=== PATIENT | female | born 1985 | race Caucasian/White ===

== ENCOUNTER 2018-05-09 09:51 | Emergency (ER) | payer BC, OTHER ==
[~2018-05-09] VITALS: Ht 170.2 cm; Wt 83.9 kg
--- OUTSIDE RECORDS SUMMARY | 2018-05-09 09:57 | XMS REPORT ---
Author Author ANNIE PELAEZ Organization [facility] Address [address] [place] [address] Care Team Providers Care Tire Wrapper Name Role Phone BENIGNO ANNIE Unavailable PROBLEMS Type Condition ICD9-CM Code ZYD91-CT Code Onset Dates Condition Status SNOMED Code Problem Overweight (BMI 25.0-29.9) E66.3 Active 685369657 Problem Witnessed seizure-like activity R56.9 Active 568482894 Problem Subclinical hyperthyroidism E05.90 Active 379295892 ALLERGIES No Information ENCOUNTERS Encounter Location Date Diagnosis [facility] IN [facility] [address] [address] Oct, Acute nasopharyngitis J00 [facility] [address] [address] Oct, [facility] [address] [address] Oct, Subclinical hyperthyroidism E05.90 [facility] [address] [address] Oct, [facility] [address] [address] Oct, Witnessed seizure-like activity R56.9 and Overweight (BMI 25.0-29.9) E66.3 [facility] [address] [address] Aug, IMMUNIZATIONS No Known Immunizations SOCIAL HISTORY Never Assessed REASON FOR VISIT Requests return call PLAN OF CARE VITAL SIGNS MEDICATIONS No Known Medications RESULTS No Results PROCEDURES No Known procedures INSTRUCTIONS MEDICATIONS ADMINISTERED No Known Medications MEDICAL (GENERAL) HISTORY Type Description Date Medical History HPV Medical History gastroesophageal reflux disease (GERD) Surgical History cholecystectomy 2007 Surgical History EGD x2 2008 Hospitalization History Surgery(s)/Childbirth(s) only
--- OUTSIDE RECORDS SUMMARY | 2018-05-09 09:57 | XMS REPORT ---
Author Author ANAM CRUZ Organization [facility] Address [address] [place] [address] Care Team Providers Care Top Precipitator Operator Helper Name Role Phone ANAM CRUZ Unavailable PROBLEMS Type Condition ICD9-CM Code VFB12-UO Code Onset Dates Condition Status SNOMED Code Problem Overweight (BMI 25.0-29.9) E66.3 Active 408125523 Problem Witnessed seizure-like activity R56.9 Active 258698776 Problem Subclinical hyperthyroidism E05.90 Active 879654655 ALLERGIES Substance Reaction Event Type Date Status Penicillin G Sodium hives Drug Allergy Oct, Active ENCOUNTERS Encounter Location Date Diagnosis [facility] [address] [address] Oct, Acute nasopharyngitis J00 [place] [address] [address] Oct, [place] [address] [address] Oct, Subclinical hyperthyroidism E05.90 [place] [address] [address] Oct, [place] [address] [address] Oct, Witnessed seizure-like activity R56.9 and Overweight (BMI 25.0-29.9) E66.3 [place] [address] [address] Aug, IMMUNIZATIONS No Known Immunizations SOCIAL HISTORY Never Assessed REASON FOR VISIT flu symptoms Pt c/o cough, congestion, sore throat for 2 days DEVORAH Perry PLAN OF CARE Activity Details Follow Up prn Reason: VITAL SIGNS Height 67 in 2017-11-06 Weight 180.0 lbs 2017-11-06 Temperature 98.5 degrees Fahrenheit 2017-11-06 Heart Rate 80 bpm 2017-11-06 Respiratory Rate 20 2017-11-06 Oximetry 99 % 2017-11-06 BMI 28.19 kg/m2 2017-11-06 Blood pressure systolic 120 mmHg 2017-11-06 Blood pressure diastolic 68 mmHg 2017-11-06 MEDICATIONS Medication Instructions Dosage Frequency Start Date End Date Duration Status Claritin 10 MG Orally Once a day 1 tablet 24h Not-Taking Ibuprofen Active Tylenol Active Keppra 500 mg Orally Twice a day 1 tablet 12h 12 Oct, 2017 90 days Active Multivitamin Active RESULTS No Results PROCEDURES No Known procedures INSTRUCTIONS MEDICATIONS ADMINISTERED No Known Medications MEDICAL (GENERAL) HISTORY Type Description Date Medical History HPV Medical History gastroesophageal reflux disease (GERD) Surgical History cholecystectomy 2007 Surgical History EGD x2 2007 Hospitalization History Surgery(s)/Childbirth(s) only
--- OUTSIDE RECORDS SUMMARY | 2018-05-09 09:57 | XMS REPORT ---
Author Author BENIGNO ANNIE Organization [facility] Address [address] [place] [address] Care Team Providers Care Clinic Md Associate Name Role Phone PELAEZMAR RogersELE Unavailable PROBLEMS Type Condition ICD9-CM Code LGD46-GR Code Onset Dates Condition Status SNOMED Code Problem Overweight (BMI 25.0-29.9) E66.3 Active 125526316 Problem Witnessed seizure-like activity R56.9 Active 698572902 Problem Subclinical hyperthyroidism E05.90 Active 649137988 ALLERGIES Substance Reaction Event Type Date Status Penicillin G Sodium hives Drug Allergy Oct, Active ENCOUNTERS Encounter Location Date Diagnosis [facility] IN [facility] [address] [address] Oct, Acute nasopharyngitis J00 [facility] [address] [address] Oct, [facility] [address] [address] Oct, Subclinical hyperthyroidism E05.90 [facility] [address] [address] Oct, [facility] [address] [address] Oct, Witnessed seizure-like activity R56.9 and Overweight (BMI 25.0-29.9) E66.3 [facility] [address] [address] Aug, IMMUNIZATIONS No Known Immunizations SOCIAL HISTORY Never Assessed REASON FOR VISIT Seizure--tcuppettRN, Had a possible seizure last night that lasted approximately 30 seconds. Has never had a seizure before PLAN OF CARE Activity Details Follow Up 6 Weeks Reason:needs to est. care VITAL SIGNS Height 67 in 2017-10-23 Weight 184.8 lbs 2017-10-23 Temperature 98.1 degrees Fahrenheit 2017-10-23 Heart Rate 76 bpm 2017-10-23 Respiratory Rate 20 2017-10-23 BMI 28.94 kg/m2 2017-10-23 Blood pressure systolic 130 mmHg 2017-10-23 Blood pressure diastolic 72 mmHg 2017-10-23 MEDICATIONS Medication Instructions Dosage Frequency Start Date End Date Duration Status Keppra 500 mg Orally Twice a day 1 tablet 12h Oct, 90 days Active Tylenol Active Claritin 10 MG Orally Once a day 1 tablet 24h Active Multivitamin Active Ibuprofen Active RESULTS No Results PROCEDURES Procedure Date Ordered Result Body Site COMPLETE CBC W/AUTO DIFF WBC October 23, 2017 COMPREHEN METABOLIC PANEL October 23, 2017 LIPID PANEL October 23, 2017 ASSAY THYROID STIM HORMONE October 23, 2017 VENIPUNCT, ROUTINE* October 23, 2017 ASSAY OF MAGNESIUM October 23, 2017 INSTRUCTIONS MEDICATIONS ADMINISTERED No Known Medications MEDICAL (GENERAL) HISTORY Type Description Date Medical History HPV Medical History gastroesophageal reflux disease (GERD) Surgical History cholecystectomy 2007 Surgical History EGD x2 2007 Hospitalization History Surgery(s)/Childbirth(s) only
--- OUTSIDE RECORDS SUMMARY | 2018-05-09 09:57 | XMS REPORT ---
Author Author ANNIE PELAEZ Organization [facility] Address [address] [place] [address] Care Team Providers Care Telephone Plant Power Operator Name Role Phone BENIGNOMARANNIE Unavailable PROBLEMS Type Condition ICD9-CM Code XRN85-NF Code Onset Dates Condition Status SNOMED Code Problem Overweight (BMI 25.0-29.9) E66.3 Active 391422328 Problem Witnessed seizure-like activity R56.9 Active 450506589 Problem Subclinical hyperthyroidism E05.90 Active 334785486 ALLERGIES No Information ENCOUNTERS Encounter Location Date Diagnosis [facility] IN [facility] [address] [address] Oct, Acute nasopharyngitis J00 [facility] [address] [address] Oct, [facility] [address] [address] Oct, Subclinical hyperthyroidism E05.90 [facility] [address] [address] Oct, [facility] [address] [address] Oct, Witnessed seizure-like activity R56.9 and Overweight (BMI 25.0-29.9) E66.3 [facility] [address] [address] Aug, IMMUNIZATIONS No Known Immunizations SOCIAL HISTORY Never Assessed REASON FOR VISIT Referral PLAN OF CARE VITAL SIGNS MEDICATIONS No Known Medications RESULTS No Results PROCEDURES No Known procedures INSTRUCTIONS MEDICATIONS ADMINISTERED No Known Medications MEDICAL (GENERAL) HISTORY Type Description Date Medical History HPV Medical History gastroesophageal reflux disease (GERD) Surgical History cholecystectomy 2007 Surgical History EGD x2 2008 Hospitalization History Surgery(s)/Childbirth(s) only
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
--- OUTSIDE RECORDS SUMMARY | 2018-05-09 09:57 | XMS REPORT ---
Author Author BENIGNO ANNIE Organization [facility] Address [address] [place] [address] Care Team Providers Care Associate Research Scientist Name Role Phone PELAEZANNIE Rogers Unavailable PROBLEMS Type Condition ICD9-CM Code IYU93-XI Code Onset Dates Condition Status SNOMED Code Problem Overweight (BMI 25.0-29.9) E66.3 Active 774288800 Problem Witnessed seizure-like activity R56.9 Active 919566936 Problem Subclinical hyperthyroidism E05.90 Active 880281230 ALLERGIES Substance Reaction Event Type Date Status Penicillin G Sodium hives Drug Allergy Aug, Active ENCOUNTERS Encounter Location Date Diagnosis [facility] [address] [address] Oct, Acute nasopharyngitis J00 [facility] [address] [address] Oct, [facility] [address] [address] Oct, Subclinical hyperthyroidism E05.90 [facility] [address] [place] [id number] [place] [address] Oct, [facility] [address] [address] Oct, Witnessed seizure-like activity R56.9 and Overweight (BMI 25.0-29.9) E66.3 [facility] [address] [address] Aug, IMMUNIZATIONS No Known Immunizations SOCIAL HISTORY Never Assessed REASON FOR VISIT PMH obtained. Howard RAYA PLAN OF CARE VITAL SIGNS MEDICATIONS No Known Medications RESULTS No Results PROCEDURES No Known procedures INSTRUCTIONS MEDICATIONS ADMINISTERED No Known Medications MEDICAL (GENERAL) HISTORY Type Description Date Medical History HPV Medical History gastroesophageal reflux disease (GERD) Surgical History cholecystectomy 2008 Surgical History EGD x2 2008 Hospitalization History Surgery(s)/Childbirth(s) only
--- OUTSIDE RECORDS SUMMARY | 2018-05-09 09:57 | XMS REPORT ---
Author Author ANNIE PELAEZ Organization [facility] Address [address] [place] [address] Care Team Providers Care Wire Bender Name Role Phone BENIGNOMARANNIE Unavailable PROBLEMS Type Condition ICD9-CM Code RUQ39-FU Code Onset Dates Condition Status SNOMED Code Problem Overweight (BMI 25.0-29.9) E66.3 Active 139761948 Problem Witnessed seizure-like activity R56.9 Active 738073779 Problem Subclinical hyperthyroidism E05.90 Active 851369577 ALLERGIES No Information ENCOUNTERS Encounter Location Date Diagnosis [facility] IN [facility] [address] [address] Oct, Acute nasopharyngitis J00 [facility] [address] [address] Oct, [facility] [address] [address] Oct, Subclinical hyperthyroidism E05.90 [facility] [address] [address] Oct, [facility] [address] [address] Oct, Witnessed seizure-like activity R56.9 and Overweight (BMI 25.0-29.9) E66.3 [facility] [address] [address] Aug, IMMUNIZATIONS No Known Immunizations SOCIAL HISTORY Never Assessed REASON FOR VISIT Lab results PLAN OF CARE VITAL SIGNS MEDICATIONS No Known Medications RESULTS No Results PROCEDURES No Known procedures INSTRUCTIONS MEDICATIONS ADMINISTERED No Known Medications MEDICAL (GENERAL) HISTORY Type Description Date Medical History HPV Medical History gastroesophageal reflux disease (GERD) Surgical History cholecystectomy 2007 Surgical History EGD x2 2008 Hospitalization History Surgery(s)/Childbirth(s) only
[2018-05-09] MEDS ORDERED: KETOROLAC 30 MG/ML VIAL IM ONE (10:15)
--- NOTE | 2018-05-09 10:15 | ED Upper Extremity ---
General Chief Complaint: Upper Extremity Stated Complaint: R HAND INJ Nursing Triage Note: pt states last night, she was coming in her house from the rain when she slipped and fell into a door jam striking her hand Nursing Sepsis Screen: No Definite Risk Source: patient, spouse Exam Limitations: no limitations History of Present Illness Date Seen by Provider: May 09, 2018 Time Seen by Provider: 10:05 Initial Comments The patient presents to the ER by private conveyance with chief complaint that she was walking the dogs last night in the rain and when she came in she's fell on the linoleum and landed with her right hand stretched out in front of her fourth and fifth digits running into the doorjamb. She put some ice on it and took a Profen last night but this morning it was quite swollen, bruised and painful. She has no previous fractures to her hand. She is right-handed. No injuries elsewhere. She does not strike her head or get knocked out. No significant medical history. She denies , control or tubal ligation. Allergies and Home Medications Allergies Coded Allergies: No Known Drug Allergies (Unverified , 05/09/18) Patient Home Medication List Home Medication List Reviewed: Yes Review of Systems Constitutional: No chills, No diaphoresis EENTM: No hearing loss, No ear pain Respiratory: No cough, No short of breath Cardiovascular: No chest pain, No Hx of Intervention Gastrointestinal: No abdominal pain, No nausea Past Cclkzba-Oncaqf-Ehbaxe Hx Patient Social History Recent Foreign Travel: No Contact w/Someone Who Travel: No Recent Infectious Disease Expo: No Past Medical History : No Last Menstrual Period: Apr 25, 2018 Physical Exam Vital Signs Vital Signs - First Documented Capillary Refill : Less Than 3 Seconds Height, Weight, BMI Height: 5'7.00" Weight: 185lbs. oz. 83.761177fz; BMI Method:Stated General Appearance: WD/WN, no apparent distress HEENT: PERRL/EOMI, pharynx normal Cardiovascular: normal peripheral pulses, regular rate, rhythm Respiratory: no respiratory distress, no accessory muscle use Elbow/Forearm: normal inspection, non-tender, no evidence of injury, normal ROM , Right Wrist: Yes normal inspection, Yes non-tender, Yes no evidence of injury Hand: Right, ecchymosis (over the lateral fourth and fifth metacarpals there is a hematoma and tenderness with limited range of motion to this finger secondary to pain.), soft tissue tenderness, swelling Skin: ecchymosis (over fourth and fifth metacarpals), other (capillary refill less than 2 seconds all 5 digits right hand) Progress/Results/Core Measures Results/Orders My Orders Orders - MARCI LINARES Urine Bedside (05/09/18 10:11) Hand, Right, 3 Views (05/09/18 10:11) Ketorolac Injection (Toradol Injection) (05/09/18 10:15) Medications Given in ED Current Medications Medications Dose Ordered Sig/Dejan Route Start Time Stop Time Status Last Admin Dose Admin Ketorolac Tromethamine 30 mg ONCE ONCE IM 05/09/18 10:15 05/09/18 10:16 DC 05/09/18 10:59 30 MG Vital Signs/I&O 05/09/18 10:03 B/P (MAP) Progress Progress Note : Time: 10:14 Progress Note Bedside , Toradol and x-ray of hand. Encourage ice. Diagnostic Imaging Diagonstic Imaging: Xray Plain Films/CT/US/NM/MRI: hand (right) Comments [facility]IA [facility] [place], [place] NAME: STACI BERRIOS [facility] REC#: [id number] PT STATUS: REG ER : 1985 PHYSICIAN: MARCI LINARES MD ADMIT DATE: 05/09/18/ER Draft Date of Exam:05/09/18 HAND, RIGHT, 3 VIEWS INDICATION: Right hand injury with pain. AP, oblique and lateral views of the right hand are obtained. There is a mildly comminuted intra-articular fracture involving the proximal base of fifth metacarpal. No other fracture or malalignment is identified. There is no abnormal lytic or sclerotic focus. IMPRESSION: Mildly comminuted intra-articular fracture of the base of fifth metacarpal without significant displacement. Dictated on workstation # [id number] Dict: 05/09/18 1049 Trans: 05/09/18 1058 [facility] [id number] Interpreted by: GLORIA HSIEH MD Electronically signed by: Departure Impression Primary Impression: Fracture of fifth metacarpal bone of right hand Qualified Codes: S62.346A - Nondisplaced fracture of base of fifth metacarpal bone, right hand, initial encounter for closed fracture Disposition: 01 HOME, SELF-CARE Condition: Stable Departure-Patient Inst. Decision time for Depature: 11:26 Referrals: SARAH MONSON MD Patient Instructions: Hand Fracture (DC) Add. Discharge Instructions: Wear the hand splint for comfort keep the hand elevated above the level of your heart when possible and apply ice every 4 hours for 20 minutes for the first 3 days. You can also use heating pads as necessary for pain. Use ibuprofen 800 mg every 8 hours in addition to Tylenol 1000 mg every 8 hours as needed for pain. He still have breakthrough pain you can use the hydrocodone one tablet every 6 hours but will cause constipation, drowsiness and should not be mixed with alcohol, climbing up ladders or scaffolding or long road trips. Call [facility] at the number listed per Dr. Monson and request to be seen by the hand surgeon either this week or early next week. All discharge instructions reviewed with patient and/or family. Voiced understanding. Scripts Hydrocodone Bit/Acetaminophen (Hydrocodone/Acetaminophen 5/325mg Tablet) 1 Tab Tab 1 EACH PO Q4-6HR PRN for PAIN-MODERATE MDD 10 for 7 Days, #16 TAB 0 Refills Prov: MARCI LINARES 05/09/18 Work/School Note: Work Release Form Date Seen in the Emergency Department: May 09, 2018 Return to Work: May 10, 2018 Restrictions: Need Release from Doctor Other Restrictions Listed Below: No lifting more than 20 pounds with the right hand for 6 weeks. MARCI LINARES May 09, 2018 10:15
--- NOTE | 2018-05-09 10:58 | Diagnostic Imaging Report ---
INDICATION: Right hand injury with pain. AP, oblique and lateral views of the right hand are obtained. There is a mildly comminuted intra-articular fracture involving the proximal base of fifth metacarpal. No other fracture or malalignment is identified. There is no abnormal lytic or sclerotic focus. IMPRESSION: Mildly comminuted intra-articular fracture of the base of fifth metacarpal without significant displacement. Dictated by: Dictated on workstation # [id number]
[2018-05-09] MEDS ORDERED: ACHD5005 PO (11:28)
[2018-05-09 11:46] VITALS: BP 132/68
== END 2018-05-09 11:46 | disposition home or self-care (01) ==
LOC: ER 09:53
DX: S62.346A Nondisplaced fracture of base of fifth metacarpal bone, right hand, initial encounter for closed fracture (principal); W18.30XA Fall on same level, unspecified, initial encounter; W23.1XXA Caught, crushed, jammed, or pinched between stationary objects, initial encounter
CPT/HCPCS: 73130; 84703

== ENCOUNTER 2018-08-02 06:18 | Emergency (ER) | payer OTHER ==
[~2018-08-02] VITALS: Ht 170.2 cm; Wt 79.4 kg
[~2018-08-02 06:18] MED LIST: ACHD5005 PO
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
[2018-08-02 06:46] LABS: BASOPHILS % (AUTO) 0 % (0-10); EOSINOPHILS # (AUTO) 0.2 10^3/uL (0.0-0.3); EOSINOPHILS % (AUTO) 3 % (0-10); HEMATOCRIT 43 % (35-52); HEMOGLOBIN 15.3 G/DL (11.5-16.0); LYMPHOCYTES # (AUTO) 1.9 X 10^3 (1.0-4.0); LYMPHOCYTES % (AUTO) 30 % (12-44); MEAN CORPUSCULAR HEMOGLOBIN 31 PG (25-34); MEAN CORPUSCULAR HGB CONC 36 G/DL (32-36); MEAN CORPUSCULAR VOLUME 87 FL (80-99); MEAN PLATELET VOLUME 10.1 FL (7.4-10.4); MONOCYTES # (AUTO) 0.5 X 10^3 (0.0-1.0); MONOCYTES % (AUTO) 7 % (0-12); NEUTROPHILS # (AUTO) 3.9 X 10^3 (1.8-7.8); NEUTROPHILS % (AUTO) 60 % (42-75); PLATELET COUNT 268 10^3/uL (130-400); RED CELL DISTRIBUTION WIDTH 12.8 % (10.0-14.5); WHITE BLOOD COUNT 6.5 10^3/uL (4.3-11.0)
--- NOTE | 2018-08-02 07:00 | ED Neurological Problem ---
General Chief Complaint: Neurological Problems Stated Complaint: HAD SEIZURE 30 MINUTES AGO Nursing Triage Note: AMBULATORY TO ED WITH C/O BEING IN BATH TUB THIS AM AND HAVING A SEIZURE. STATES SHE DRAINED THE TUB WATER AFTER FEELING HER HEART RACING. THINKS IT WAS APPROX 25 MIN FROM TIME OF START UNTIL SHE WAS COHERENT TO GET HER S/O. WAS PREVIOUSLY DIAGNOSED WITH SEIZURE DISORDER AND ON KEPPRA UNTIL SEEN BY NEUROLOGIST WHO TOOK HER OFF KEPPRA AND THOUGHT IT WAS POSSIBLE SYNCOPAL EPISODES. PREVIOUS MRI AND EEG DONE. Nursing Sepsis Screen: No Definite Risk Source: patient Exam Limitations: no limitations History of Present Illness Date Seen by Provider: Aug 02, 2018 Time Seen by Provider: 06:31 Initial Comments Here with report of episode this morning while taking a bath. She is not sure if this was a seizure or syncopal episode. She states that she was in the bath and started feeling palpitations and weak. She drank the tub. She states that she then feels like she passed out. She was having this episode for about 20 or 25 minutes before she was able to get her friend. Was concerned about seizure as she has had an episode of this in the past. That was worked up by neurology including MRI and EEG. At that time they believe she may have been having syncopal episodes and not seizures. She is not sure if that is what she had today but admits that it may have been a syncopal episode. She is here because she was told by her primary and neurologist to be seen in the emergency department or by her provider soon after one of these events labs could be drawn. Denies injury or current illness. Timing/Duration: 1 hour Severity: mild, moderate Associated Symptoms: No fever/chills, No nausea/vomiting, No slurred speech, No trouble walking, No vision changes; weakness Allergies and Home Medications Allergies Coded Allergies: Penicillins (Verified Allergy, Unknown, 08/02/18) erythromycin base (Verified Allergy, Unknown, 08/02/18) Home Medications Hydrocodone Bit/Acetaminophen 1 Tab Tab, 1 EACH PO Q4-6HR PRN for PAIN-MODERATE Prescribed by: MARCI LINARES on 05/09/18 1128 Patient Home Medication List Home Medication List Reviewed: Yes Review of Systems Review of Systems Constitutional: see HPI; No chills, No fever Eyes: No Symptoms Reported Ears, Nose, Mouth, Throat: no symptoms reported Respiratory: no symptoms reported Cardiovascular: palpitations, syncope Gastrointestinal: No abdominal pain, No nausea, No vomiting Genitourinary: no symptoms reported Musculoskeletal: no symptoms reported Skin: no symptoms reported Psychiatric/Neurological: See HPI; Denies Headache, Denies Weakness Past Qxfwclg-Lebvtl-Exbjfr Hx Past Med/Social Hx: Reviewed Nursing Past Med/Soc Hx Patient Social History Alcohol Use: Occasionally Uses Recreational Drug Use: Yes Drug of Choice: MARIJUANA Smoking Status: Current Everyday Smoker Type Used: Cigarettes 2nd Hand Smoke Exposure: Yes Recent Foreign Travel: No Contact w/Someone Who Travel: No Recent Infectious Disease Expo: No Recent Hopitalizations: No Immunizations Up To Date Date of Influenza Vaccine: Jul 16, 2018 Seasonal Allergies Seasonal Allergies: No Past Medical History Surgeries: Yes (EGD X2) Gallbladder Respiratory: Yes Asthma Cardiac: No Neurological: Yes Seizure Disorder Sexually Transmitted Disease: No Genitourinary: No Gastrointestinal: No Musculoskeletal: No Endocrine: No HEENT: No Cancer: No Psychosocial: No Integumentary: No Family Medical History Reviewed Nursing Family Hx No Pertinent Family Hx Physical Exam Vital Signs Vital Signs - First Documented 08/02/18 06:25 Temp 96.5 Pulse 82 Resp 17 B/P (MAP) 144/95 (111) Capillary Refill : Less Than 3 Seconds Height, Weight, BMI Height: 5'7.00" Weight: 175lbs. oz. 79.455897ky; BMI Method:Stated General Appearance: WD/WN, no apparent distress HEENT: PERRL/EOMI, pharynx normal Neck: full range of motion, supple Respiratory: lungs clear, normal breath sounds Cardiovascular: regular rate, rhythm, no murmur Peripheral Pulses: 2+ Dorsalis Pedis (R), 2+ Left Dors-Pedis (L), 2+ Radial Pulses (R), 2+ Radial Pulses (L) Gastrointestinal: non tender, soft Back: normal inspection, no CVA tenderness, no vertebral tenderness Extremities: non-tender, normal inspection Neurologic/Psychiatric: no motor/sensory deficits, alert, normal mood/affect, oriented x 3 Crainal Nerves: normal hearing, normal speech, PERRL Coordination/Gait: normal gait Motor/Sensory: no motor deficit Skin: normal color, warm/dry Progress/Results/Core Measures Results/Orders Lab Results Laboratory Tests Test 08/02/18 06:38 Range/Units White Blood Count 6.5 4.3-11.0 10^3/uL Red Blood Count 4.90 4.35-5.85 10^6/uL Hemoglobin 15.3 11.5-16.0 G/DL Hematocrit 43 35-52 % Mean Corpuscular Volume 87 80-99 FL Mean Corpuscular Hemoglobin 31 25-34 PG Mean Corpuscular Hemoglobin Concent 36 32-36 G/DL Red Cell Distribution Width 12.8 10.0-14.5 % Platelet Count 268 130-400 10^3/uL Mean Platelet Volume 10.1 7.4-10.4 FL Neutrophils (%) (Auto) 60 42-75 % Lymphocytes (%) (Auto) 30 12-44 % Monocytes (%) (Auto) 7 0-12 % Eosinophils (%) (Auto) 3 0-10 % Basophils (%) (Auto) 0 0-10 % Neutrophils # (Auto) 3.9 1.8-7.8 X 10^3 Lymphocytes # (Auto) 1.9 1.0-4.0 X 10^3 Monocytes # (Auto) 0.5 0.0-1.0 X 10^3 Eosinophils # (Auto) 0.2 0.0-0.3 10^3/uL Basophils # (Auto) 0.0 0.0-0.1 10^3/uL Sodium Level 139 135-145 MMOL/L Potassium Level 3.4 L 3.6-5.0 MMOL/L Chloride Level 110 H 98-107 MMOL/L Carbon Dioxide Level 16 L 21-32 MMOL/L Anion Gap 13 5-14 MMOL/L Blood Urea Nitrogen 12 7-18 MG/DL Creatinine 0.80 0.60-1.30 MG/DL Estimat Glomerular Filtration Rate > 60 BUN/Creatinine Ratio 15 Glucose Level 104 70-105 MG/DL Calcium Level 9.8 8.5-10.1 MG/DL Corrected Calcium 8.5-10.1 MG/DL Magnesium Level 2.2 1.8-2.4 MG/DL Total Bilirubin 2.5 H 0.1-1.0 MG/DL Aspartate Amino Transf (AST/SGOT) 70 H 5-34 U/L Alanine Aminotransferase (ALT/SGPT) 80 H 0-55 U/L Alkaline Phosphatase 95 40-136 U/L Total Protein 7.6 6.4-8.2 GM/DL Albumin 4.8 H 3.2-4.5 GM/DL TSH [place] Testing 0.74 0.35-4.94 UIU/ML My Orders Orders - JOVITA GILBERT MD Cbc With Automated Diff (08/02/18 06:41) Comprehensive Metabolic Panel (08/02/18 06:41) Thyroid Analyzer (08/02/18 06:41) Magnesium (08/02/18 06:41) Vital Signs/I&O 08/02/18 06:25 Temp 96.5 Pulse 82 Resp 17 B/P (MAP) 144/95 (111) Blood Pressure Mean: 111 Progress Progress Note : Progress Note Seen and evaluated. Labs and TSH ordered. Monitor patient. 0730: Labs complete. Liver enzymes are noted to be slightly elevated with elevated total bili. Patient has had cholecystectomy previously. This will need to be rechecked. She does have appointment on 21 August. I will send a copy of the chart formerly [facility]'s and they can compare labs. I did express the importance of follow-up and repeat labs with the patient and she verbalizes understanding. Discharged home with return precautions. Patient verbalize understanding of instructions and agreement with plan. Departure Impression Primary Impression: Elevated liver enzymes Additional Impression: Syncope Qualified Codes: R55 - Syncope and collapse Disposition: 01 HOME, SELF-CARE Condition: Improved Departure-Patient Inst. Decision time for Depature: 07:33 Referrals: [facility]/ (PCP) Primary Care Physician JASON MCCORMICK APRN (Family) Primary Care Physician Patient Instructions: Liver Function Test, Syncope (Fainting) (DC) Add. Discharge Instructions: All discharge instructions reviewed with patient and/or family. Voiced understanding. Your liver enzymes were elevated. You need to discuss this with your doctor on your appointment on 21 August. Return for worse pain, fever, vomiting, weakness , breathing problems or other concerns as needed. Return for any seizure-like problems as well. Get some rest today and drink plenty of fluids. Avoid Tylenol/acetaminophen at this point due to liver enzyme elevation. Work/School Note: Work Release Form Date Seen in the Emergency Department: Aug 02, 2018 Return to Work: Aug 03, 2018 Restrictions: No Restrictions Copy Copies To 1: YUKI ENCARNACION TIMOTHY D MD Aug 02, 2018 07:00
[2018-08-02 07:04] LABS: ALANINE AMINOTRANSFERASE 80 U/L (0-55); ALBUMIN 4.8 GM/DL (3.2-4.5); ALKALINE PHOSPHATASE 95 U/L (40-136); BILIRUBIN,TOTAL 2.5 MG/DL (0.1-1.0); BUN/CREATININE RATIO 15; CALCIUM 9.8 MG/DL (8.5-10.1); CARBON DIOXIDE 16 MMOL/L (21-32); CHLORIDE 110 MMOL/L (98-107); GFR ESTIMATED > 60; GLUCOSE 104 MG/DL (70-105); MAGNESIUM 2.2 MG/DL (1.8-2.4); POTASSIUM 3.4 MMOL/L (3.6-5.0); SODIUM 139 MMOL/L (135-145); TOTAL PROTEIN 7.6 GM/DL (6.4-8.2)
[2018-08-02 07:24] LABS: TSH (THYROID ANALYZER) 0.74 UIU/ML (0.35-4.94)
[2018-08-02 07:40] VITALS: BP 126/92
== END 2018-08-02 07:40 | disposition home or self-care (01) ==
LOC: EDUNIT# 06:18 → ER 06:21
DX: R55 Syncope and collapse (principal); R94.5 Abnormal results of liver function studies; J45.909 Unspecified asthma, uncomplicated; G40.909 Epilepsy, unspecified, not intractable, without status epilepticus; F12.10 Cannabis abuse, uncomplicated; F17.210 Nicotine dependence, cigarettes, uncomplicated; Z88.0 Allergy status to penicillin; Z88.1 Allergy status to other antibiotic agents
CPT/HCPCS: 36415; 80053; 83735; 84443; 85025

== ENCOUNTER 2018-09-10 13:19 | Emergency (ER) | payer OTHER ==
[~2018-09-10] VITALS: Ht 170.2 cm; Wt 79.4 kg
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
[2018-09-10] MEDS ORDERED: KETOROLAC 60 MG/2 ML VIAL IM ONE (13:45)
[2018-09-10] MEDS ORDERED: ORPHENADRINE 60 MG/2 ML (NORFLEX) AMP IM ONE (13:45)
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
[2018-09-10] MEDS ORDERED: CYCL10TA9 PO (14:35)
[2018-09-10 14:43] VITALS: BP 109/69
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
== END 2018-09-10 14:43 | disposition home or self-care (01) ==
LOC: EDUNIT# 13:19 → ER 13:19
DX: S13.4XXA Sprain of ligaments of cervical spine, initial encounter (principal); J45.909 Unspecified asthma, uncomplicated; G40.909 Epilepsy, unspecified, not intractable, without status epilepticus; F12.10 Cannabis abuse, uncomplicated; Z77.22 Contact with and (suspected) exposure to environmental tobacco smoke (acute) (chronic); Z88.0 Allergy status to penicillin; Z88.1 Allergy status to other antibiotic agents; Z98.890 Other specified postprocedural states; V49.40XA Driver injured in collision with unspecified motor vehicles in traffic accident, initial encounter
CPT/HCPCS: 70450; 72125; 96372

== ENCOUNTER 2018-12-03 12:43 | Emergency (ER) | payer OTHER ==
[~2018-12-03] VITALS: Ht 170.2 cm; Wt 74.8 kg
[~2018-12-03 12:43] MED LIST changes: +CYCL10TA9 PO
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
[2018-12-03 13:05] LABS: BASOPHILS % (AUTO) 0 % (0-10); EOSINOPHILS # (AUTO) 0.1 10^3/uL (0.0-0.3); EOSINOPHILS % (AUTO) 2 % (0-10); HEMATOCRIT 40 % (35-52); HEMOGLOBIN 13.8 G/DL (11.5-16.0); LYMPHOCYTES % (AUTO) 35 % (12-44); MEAN CORPUSCULAR HEMOGLOBIN 31 PG (25-34); MEAN CORPUSCULAR HGB CONC 34 G/DL (32-36); MEAN CORPUSCULAR VOLUME 90 FL (80-99); MEAN PLATELET VOLUME 10.4 FL (7.4-10.4); MONOCYTES # (AUTO) 0.6 X 10^3 (0.0-1.0); MONOCYTES % (AUTO) 7 % (0-12); NEUTROPHILS # (AUTO) 4.8 X 10^3 (1.8-7.8); NEUTROPHILS % (AUTO) 56 % (42-75); PLATELET COUNT 220 10^3/uL (130-400); RED CELL DISTRIBUTION WIDTH 12.8 % (10.0-14.5); WHITE BLOOD COUNT 8.6 10^3/uL (4.3-11.0)
[2018-12-03 13:08] LABS: BILIRUBIN,URINE NEGATIVE (NEGATIVE); CLARITY,URINE SLIGHTLY CLOUDY; COLOR,URINE YELLOW; GLUCOSE, URINE (UA) NEGATIVE (NEGATIVE); KETONES,URINE NEGATIVE (NEGATIVE); LEUKOCYTE ESTERASE ,URINE 1+ (NEGATIVE); NITRITE,URINE NEGATIVE (NEGATIVE); PH,URINE 5 (5-9); PROTEIN,URINE NEGATIVE (NEGATIVE); UROBILINOGEN,URINE NORMAL (NORMAL)
[2018-12-03 13:23] LABS: ALANINE AMINOTRANSFERASE 26 U/L (0-55); ALBUMIN 4.5 GM/DL (3.2-4.5); ALKALINE PHOSPHATASE 58 U/L (40-136); AMYLASE 45 U/L (25-125); BILIRUBIN,TOTAL 1.2 MG/DL (0.1-1.0); BUN/CREATININE RATIO 14; CALCIUM 9.9 MG/DL (8.5-10.1); CARBON DIOXIDE 23 MMOL/L (21-32); CHLORIDE 108 MMOL/L (98-107); CREATININE SERUM 0.77 MG/DL (0.60-1.30); GFR ESTIMATED > 60; GLUCOSE 92 MG/DL (70-105); LIPASE 22 U/L (8-78); POTASSIUM 3.6 MMOL/L (3.6-5.0); SODIUM 141 MMOL/L (135-145); TOTAL PROTEIN 7.1 GM/DL (6.4-8.2)
[2018-12-03 13:45] LABS: BACTERIA,URINE NEGATIVE /HPF; WBC,URINE 0-2 /HPF
[2018-12-03] MEDS ORDERED: fentaNYL INJECTION 100 MCG/2 ML AMP IVP ONE (14:00)
--- NOTE | 2018-12-03 14:48 | ED GU-Female ---
General Chief Complaint: Abdominal/GI Problems Stated Complaint: LEFT SIDE ABD PAIN Nursing Triage Note: pt presents with left-sided abdominal pain that shoots through to her back since this morning. pt states pain is dull/throbbing in nature and constant. pt denies n/v/d/c. Nursing Sepsis Screen: No Definite Risk Source: patient Exam Limitations: no limitations History of Present Illness Date Seen by Provider: Dec 03, 2018 Time Seen by Provider: 12:47 Allergies and Home Medications Allergies Coded Allergies: Penicillins (Verified Allergy, Unknown, 08/02/18) erythromycin base (Verified Allergy, Unknown, 08/02/18) Home Medications Cyclobenzaprine HCl 10 Mg Tablet, 10 MG PO Q8H Prescribed by: ANTONIO GÓMEZ on 09/10/18 1435 Hydrocodone Bit/Acetaminophen 1 Tab Tab, 1 EACH PO Q4-6HR PRN for PAIN-MODERATE Prescribed by: MARCI LINARES on 05/09/18 1128 Past Gqvljdl-Keiutc-Ecppiq Hx Patient Social History Alcohol Use: Denies Use Recreational Drug Use: No Type Used: Cigarettes 2nd Hand Smoke Exposure: Yes Recent Foreign Travel: No Contact w/Someone Who Travel: No Recent Infectious Disease Expo: No Recent Hopitalizations: No Immunizations Up To Date Date of Influenza Vaccine: Jul 16, 2018 Seasonal Allergies Seasonal Allergies: No Past Medical History Surgeries: Yes (EGD X2) Gallbladder Respiratory: Yes Asthma Cardiac: No Neurological: Yes Seizure Disorder Sexually Transmitted Disease: No Genitourinary: No Gastrointestinal: No Musculoskeletal: No Endocrine: No HEENT: No Cancer: No Psychosocial: No Integumentary: No Family Medical History No Pertinent Family Hx Physical Exam Vital Signs Vital Signs - First Documented 12/03/18 12:48 Temp 97.5 Pulse 72 Resp 18 B/P (MAP) 144/87 (106) Pulse Ox 99 O2 Delivery Room Air Capillary Refill : Less Than 3 Seconds Height, Weight, BMI Height: 5'7.00" Weight: 165lbs. oz. 74.397349es; BMI Method:Stated Progress/Results/Core Measures Suspected Sepsis Recent Fever Within 48 Hours: No Infection Criteria Present: Suspected New Infection New/Unexplained Altered Menta: No Sepsis Screen: No Definite Risk SIRS Temperature:97.5 Pulse: 72 Respiratory Rate: 18 Laboratory Tests 12/03/18 12:55: White Blood Count 8.6 Blood Pressure 144 /87 Mean: 106 Laboratory Tests 12/03/18 12:55: Creatinine 0.77, Platelet Count 220, Total Bilirubin 1.2H Results/Orders Lab Results Laboratory Tests Test 12/03/18 12:55 12/03/18 12:59 Range/Units White Blood Count 8.6 4.3-11.0 10^3/uL Red Blood Count 4.49 4.35-5.85 10^6/uL Hemoglobin 13.8 11.5-16.0 G/DL Hematocrit 40 35-52 % Mean Corpuscular Volume 90 80-99 FL Mean Corpuscular Hemoglobin 31 25-34 PG Mean Corpuscular Hemoglobin Concent 34 32-36 G/DL Red Cell Distribution Width 12.8 10.0-14.5 % Platelet Count 220 130-400 10^3/uL Mean Platelet Volume 10.4 7.4-10.4 FL Neutrophils (%) (Auto) 56 42-75 % Lymphocytes (%) (Auto) 35 12-44 % Monocytes (%) (Auto) 7 0-12 % Eosinophils (%) (Auto) 2 0-10 % Basophils (%) (Auto) 0 0-10 % Neutrophils # (Auto) 4.8 1.8-7.8 X 10^3 Lymphocytes # (Auto) 3.0 1.0-4.0 X 10^3 Monocytes # (Auto) 0.6 0.0-1.0 X 10^3 Eosinophils # (Auto) 0.1 0.0-0.3 10^3/uL Basophils # (Auto) 0.0 0.0-0.1 10^3/uL Sodium Level 141 135-145 MMOL/L Potassium Level 3.6 3.6-5.0 MMOL/L Chloride Level 108 H 98-107 MMOL/L Carbon Dioxide Level 23 21-32 MMOL/L Anion Gap 10 5-14 MMOL/L Blood Urea Nitrogen 11 7-18 MG/DL Creatinine 0.77 0.60-1.30 MG/DL Estimat Glomerular Filtration Rate > 60 BUN/Creatinine Ratio 14 Glucose Level 92 70-105 MG/DL Calcium Level 9.9 8.5-10.1 MG/DL Corrected Calcium 9.5 8.5-10.1 MG/DL Total Bilirubin 1.2 H 0.1-1.0 MG/DL Aspartate Amino Transf (AST/SGOT) 16 5-34 U/L Alanine Aminotransferase (ALT/SGPT) 26 0-55 U/L Alkaline Phosphatase 58 40-136 U/L Total Protein 7.1 6.4-8.2 GM/DL Albumin 4.5 3.2-4.5 GM/DL Amylase Level 45 25-125 U/L Lipase 22 8-78 U/L Serum Test, Qualitative NEGATIVE NEGATIVE Urine Color YELLOW Urine Clarity SLIGHTLY CLOUDY Urine pH 5 5-9 Urine Specific [place] 1.025 H 1.016-1.022 Urine Protein NEGATIVE NEGATIVE Urine Glucose (UA) NEGATIVE NEGATIVE Urine Ketones NEGATIVE NEGATIVE Urine Nitrite NEGATIVE NEGATIVE Urine Bilirubin NEGATIVE NEGATIVE Urine Urobilinogen NORMAL NORMAL MG/DL Urine Leukocyte Esterase 1+ H NEGATIVE Urine RBC (Auto) 1+ H NEGATIVE Urine RBC NONE /HPF Urine WBC 0-2 /HPF Urine Squamous Epithelial Cells 5-10 /HPF Urine Crystals NONE /LPF Urine Bacteria NEGATIVE /HPF Urine Casts NONE /LPF Urine Mucus NEGATIVE /LPF Urine Culture Indicated NO My Orders Orders - ANTONIO GÓMEZ Comprehensive Metabolic Panel (12/03/18 12:47) Lipase (12/03/18 12:47) Amylase (12/03/18 12:47) Ua Culture If Indicated (12/03/18 12:47) Hcg,Qualitative Serum (12/03/18 12:47) Ed Iv/Invasive Line Start (12/03/18 12:47) Cbc With Automated Diff (12/03/18 12:47) Fentanyl Injection (Sublimaze Injection (12/03/18 14:00) Us Non Ob Pelvis Comp/Transvag (12/03/18 13:26) Medications Given in ED Current Medications Medications Dose Ordered Sig/Dejan Route Start Time Stop Time Status Last Admin Dose Admin Fentanyl Citrate 50 mcg ONCE ONCE IVP 12/03/18 14:00 12/03/18 14:01 DC 12/03/18 14:01 50 MCG Vital Signs/I&O 12/03/18 12:48 Temp 97.5 Pulse 72 Resp 18 B/P (MAP) 144/87 (106) Pulse Ox 99 O2 Delivery Room Air Capillary Refill : Less Than 3 Seconds Blood Pressure Mean: 106 Departure Impression Primary Impression: Left lower quadrant pain Disposition: 01 HOME, SELF-CARE Condition: Stable/Unchanged Departure-Patient Inst. Decision time for Depature: 15:13 Referrals: [facility] (PCP) Primary Care Physician JASON MCCORMICK APRN (Family) Primary Care Physician Patient Instructions: Acute Abdomen (Belly Pain), Adult (DC) Add. Discharge Instructions: Keep your appointment with Soheila Hayward as scheduled tomorrow. Return back to the emergency room for worsening symptoms or concerns as needed. Drink plenty of fluids to stay hydrated. You may use Tylenol and ibuprofen as directed by the bottle for pain relief. All discharge instructions reviewed with patient and /or family. Voiced understanding. ANTONIO GÓMEZ Dec 03, 2018 14:48
--- NOTE | 2018-12-03 14:49 | Diagnostic Imaging Report ---
PROCEDURE: US Non-ob pelvis comp/trans. TECHNIQUE: Multiple realtime grayscale images were obtained of the pelvis in various projections endovaginally. Transabdominal imaging was also performed. INDICATION: Left side abdominal pain. The uterus measures 7.2 x 5.4 x 3.5 cm. The endometrium is 9 mm in thickness. No myometrial mass is detected. The right ovary measures 1.8 x 1.5 x 1.4 cm and the left ovary measures 2.4 x 2.5 x 1.2 cm. The ovaries contain small follicles. There is blood flow to both ovaries. No adnexal mass or free fluid is seen. IMPRESSION: Unremarkable pelvic ultrasound. Dictated by: Dictated on workstation # [id number]
[2018-12-03 15:37] VITALS: BP 128/87
== END 2018-12-03 15:37 | disposition home or self-care (01) ==
LOC: EDUNIT# 12:43 → ER 12:44
DX: R10.32 Left lower quadrant pain (principal); J45.909 Unspecified asthma, uncomplicated; G40.909 Epilepsy, unspecified, not intractable, without status epilepticus; Z88.0 Allergy status to penicillin; Z91.041 Radiographic dye allergy status; Z77.22 Contact with and (suspected) exposure to environmental tobacco smoke (acute) (chronic)
CPT/HCPCS: 36415; 76830; 76856; 80053; 81000; 82150; 83690; 84703; 85025

== ENCOUNTER 2019-02-01 10:52 | Emergency (ER) | payer OTHER ==
[~2019-02-01] VITALS: Ht 170.2 cm; Wt 74.8 kg
[2019-02-01] MEDS ORDERED: ASPIRIN 81 MG CHEW (CHILDREN'S ASA) PO ONE (11:15)
--- NOTE | 2019-02-01 11:15 | ED Chest Pain ---
General Chief Complaint: Chest Pain Stated Complaint: CHEST PAIN, ARM AND LEG NUMBNESS Nursing Triage Note: PT WAS SEEN BY CARDIOLOGY YESTERDAY FOR ECHO AND STRESS YESTERDAY. PT STATES SHE STARTED HAVING CHEST PAIN 25 MINUTES PRIOR TO ARRIVAL. PT STATES SHE WAS SWEATY AND BLURRY VISION. PT STATES NOTHING ABOUT THIS EVENT TODAY WAS DIFFERENT THAN PRIOR EPISODES. PT DENIES N/V/D/FEVER. PT DENIES CURRENT CHEST PAIN. PT STATES NUMBNESS AND TINGLING IN LEGS. PT SAID SHE HAS HAD EPISODES IN THE PAST CONCERN OF SEIZURE. Nursing Sepsis Screen: No Definite Risk History of Present Illness Date Seen by Provider: Feb 01, 2019 Time Seen by Provider: 11:00 Initial Comments 33-year-old female presents for chest pain began approximately 25 minutes prior to arrival. She has these symptoms intermittently and is having a cardiac work up by Dr. Cox, yesterday she completed a stress test and echo. Timing/Duration: 1/2 hour Severity/Quality: mild Location: substernal Radiation: no radiation Prior CP/Workup: non-cardiac ASA po LADLER: No NTG SL LADLER: No Associated Symptoms: denies symptoms; No abdominal pain, No back pain, No diaphoresis, No dizziness, No heartburn, No nausea/vomiting, No shortness of breath, No weakness Allergies and Home Medications Allergies Coded Allergies: Penicillins (Verified Allergy, Unknown, 08/02/18) erythromycin base (Verified Allergy, Unknown, 08/02/18) Home Medications Cyclobenzaprine HCl 10 Mg Tablet, 10 MG PO Q8H Prescribed by: ANTONIO GÓMEZ on 09/10/18 1435 Hydrocodone Bit/Acetaminophen 1 Tab Tab, 1 EACH PO Q4-6HR PRN for PAIN-MODERATE Prescribed by: MARCI LINARES on 05/09/18 1128 Patient Home Medication List Home Medication List Reviewed: Yes Review of Systems Review of Systems Constitutional: no symptoms reported, see HPI Cardiovascular: See HPI, Chest Pain All Other Systems Reviewed Negative Unless Noted: Yes Past Stnyqki-Lmbeut-Mfrqjk Hx Patient Social History Alcohol Use: Denies Use Recreational Drug Use: Yes (yesterday. ) Drug of Choice: MARIJUANA Smoking Status: Current Everyday Smoker Type Used: Cigarettes 2nd Hand Smoke Exposure: Yes Recent Foreign Travel: No Contact w/Someone Who Travel: No Recent Infectious Disease Expo: No Recent Hopitalizations: No Physical Abuse: No Sexual Abuse: No Mistreated: No Fear: No Immunizations Up To Date Date of Influenza Vaccine: Jul 16, 2018 Seasonal Allergies Seasonal Allergies: No Past Medical History Surgeries: Yes (EGD X2) Gallbladder Respiratory: Yes Asthma Cardiac: No Neurological: Yes Seizure Disorder Sexually Transmitted Disease: No Genitourinary: No Gastrointestinal: No Musculoskeletal: No Endocrine: No HEENT: No Cancer: No Psychosocial: No Integumentary: No Family Medical History No Pertinent Family Hx Physical Exam Vital Signs Vital Signs - First Documented 02/01/19 11:01 Temp 97.6 Pulse 78 Resp 18 B/P (MAP) 118/84 (95) Pulse Ox 98 O2 Delivery Room Air Capillary Refill : Less Than 3 Seconds Height, Weight, BMI Height: 5'7.00" Weight: 165lbs. oz. 74.588508io; BMI Method:Stated General Appearance: No Apparent Distress, WD/WN HEENT: PERRL/EOMI, TMs Normal, Normal ENT Inspection, Pharynx Normal Neck: Full Range of Motion, Normal Inspection, Non Tender, Supple Respiratory: Chest Non Tender, Lungs Clear, Normal Breath Sounds Cardiovascular: Regular Rate, Rhythm, No Edema, No Murmur, Normal Peripheral Pulses Gastrointestinal: Normal Bowel Sounds, Non Tender, Soft Neurologic/Psychiatric: Alert, Oriented x3, No Motor/Sensory Deficits, Normal Mood/Affect Skin: Normal Color, Warm/Dry Lymphatic: No Adenopathy Progress/Results/Core Measures Results/Orders Lab Results Laboratory Tests Test 02/01/19 11:10 Range/Units White Blood Count 7.0 4.3-11.0 10^3/uL Red Blood Count 4.57 4.35-5.85 10^6/uL Hemoglobin 14.1 11.5-16.0 G/DL Hematocrit 40 35-52 % Mean Corpuscular Volume 87 80-99 FL Mean Corpuscular Hemoglobin 31 25-34 PG Mean Corpuscular Hemoglobin Concent 35 32-36 G/DL Red Cell Distribution Width 12.2 10.0-14.5 % Platelet Count 219 130-400 10^3/uL Mean Platelet Volume 10.5 H 7.4-10.4 FL Neutrophils (%) (Auto) 54 42-75 % Lymphocytes (%) (Auto) 36 12-44 % Monocytes (%) (Auto) 8 0-12 % Eosinophils (%) (Auto) 2 0-10 % Basophils (%) (Auto) 0 0-10 % Neutrophils # (Auto) 3.8 1.8-7.8 X 10^3 Lymphocytes # (Auto) 2.5 1.0-4.0 X 10^3 Monocytes # (Auto) 0.6 0.0-1.0 X 10^3 Eosinophils # (Auto) 0.1 0.0-0.3 10^3/uL Basophils # (Auto) 0.0 0.0-0.1 10^3/uL Prothrombin Time 13.6 12.2-14.7 SEC INR Comment 1.0 0.8-1.4 Activated Partial Thromboplast Time 30 24-35 SEC Sodium Level 137 135-145 MMOL/L Potassium Level 3.1 L 3.6-5.0 MMOL/L Chloride Level 109 H 98-107 MMOL/L Carbon Dioxide Level 16 L 21-32 MMOL/L Anion Gap 12 5-14 MMOL/L Blood Urea Nitrogen 17 7-18 MG/DL Creatinine 0.92 0.60-1.30 MG/DL Estimat Glomerular Filtration Rate > 60 BUN/Creatinine Ratio 18 Glucose Level 126 H 70-105 MG/DL Calcium Level 9.6 8.5-10.1 MG/DL Corrected Calcium 9.3 8.5-10.1 MG/DL Magnesium Level 2.1 1.8-2.4 MG/DL Total Bilirubin 1.4 H 0.1-1.0 MG/DL Aspartate Amino Transf (AST/SGOT) 17 5-34 U/L Alanine Aminotransferase (ALT/SGPT) 22 0-55 U/L Alkaline Phosphatase 56 40-136 U/L Myoglobin 83.8 10.0-92.0 NG/ML Troponin I < 0.028 <0.028 NG/ML Total Protein 7.1 6.4-8.2 GM/DL Albumin 4.4 3.2-4.5 GM/DL Free Thyroxine 0.99 0.70-1.48 NG/DL TSH [place] Testing 0.30 L 0.35-4.94 UIU/ML My Orders Orders - LISSETTE DENNIS Cbc With Automated Diff (02/01/19 11:10) Magnesium (02/01/19 11:10) Chest 1 View, Ap/Pa Only (02/01/19 11:10) Cardiac Profile 1 (02/01/19 11:10) Comprehensive Metabolic Panel (02/01/19 11:10) Myoglobin Serum (02/01/19 11:10) Protime With Inr (02/01/19 11:10) Partial Thromboplastin Time (02/01/19 11:10) Monitor-Rhythm Ecg Trace Only (02/01/19 11:10) Ed Iv/Invasive Line Start (02/01/19 11:10) Aspirin Chewable Tablet (Baby Aspirin Ch (02/01/19 11:15) Thyroid Analyzer (02/01/19 11:34) Free T4 (Free Thyroxine) (02/01/19 11:10) Medications Given in ED Current Medications Medications Dose Ordered Sig/Dejan Route Start Time Stop Time Status Last Admin Dose Admin Aspirin 324 mg ONCE ONCE PO 02/01/19 11:15 02/01/19 11:16 DC 02/01/19 11:24 324 MG Vital Signs/I&O 02/01/19 02/01/19 02/01/19 11:01 11:01 13:31 Temp 97.6 97.6 Pulse 78 78 Resp 18 18 B/P (MAP) 118/84 (95) 118/84 (95) Pulse Ox 98 98 O2 Delivery Room Air Room Air Room Air Blood Pressure Mean: 95 Progress Progress Note : Time: 11:00 Progress Note Patient seen and evaluated, will start chest pain workup and proceed from there. Aspirin 324 mg orally. 1145 troponin negative, awaiting chest x-ray. Patient does report a history of thyroid dysfunction in the past however no she never required treatment will obtain a TSH and T4. [address] Cox by phone, the patient is scheduled for a tilt test next Monday, he'll proceed that no further treatment at this time. 1300 spoke to patient about her results of her TSH and T4. She'll follow up with his primary care provider. She is to take keep a follow-up appointment with Dr. Cxo. Discharge instructions and return precautions reviewed with her. Initial ECG Impression Date: Feb 01, 2019 Initial ECG Impression Time: 11:00 Initial ECG Rate: 79 Initial ECG Rhythm: Normal Sinus Initial ECG Intervals: Normal Initial ECG Intervals NM 148, QRSD 90, QT 372, QTC 427. Tuttle P 57, QRS 62, T 45. Initial ECG Impression: Normal Initial ECG Comparisson: Unchanged Diagnostic Imaging Diagonstic Imaging: Xray Plain Films/CT/US/NM/MRI: chest Comments NAME: STACI BERRIOS [facility] REC#: [id number] PHYSICIAN: LISSETTE DENNIS CC: LISSETTE DENNIS; RUTH FRANKS MD Page 1 of 1 RADIOLOGY REPORT [facility] [place] [place] CC: LISSETTE DENNIS; RUTH FRANKS MD Page 1 of 1 RADIOLOGY REPORT NAME: STACI BERRIOS [facility] REC#: [id number] PT STATUS: DEP ER : 1985 PHYSICIAN: LISSETTE DENNIS ADMIT DATE: 02/01/19/ER Signed Date of Exam: 02/01/19 CHEST 1 VIEW, AP/PA ONLY CHEST 1 VIEW, AP/PA ONLY Indication: Chest pain Comparison: None available. Findings: No focal airspace disease in the visualized lungs. Please note that the posterior lower lobes are poorly evaluated by portable radiography. No pleural effusion or pneumothorax. Normal cardiomediastinal silhouette. Impression: No acute cardiopulmonary process by portable radiography. Dictated by: Dictated on workstation # [id number] Dict: 02/01/19 1138 Trans: 02/01/19 1139 Interpreted by: RUTH FRANKS MD Electronically signed by: RUTH FRANKS MD 02/01/19 1139 Reviewed: Reviewed by Az Departure Impression Primary Impression: Chest pain, non-cardiac Additional Impression: Thyroid condition Disposition: 01 HOME, SELF-CARE Condition: Improved Departure-Patient Inst. Decision time for Depature: 12:15 Referrals: [facility] (PCP) Primary Care Physician EYAD ISLAS APRN (Family) Primary Care Physician Patient Instructions: Chest Pain That Is Not Caused by the Heart (DC), Hyperthyroidism (Overactive Thyroid) (DC) Add. Discharge Instructions: Keep your scheduled follow-up with Dr. Cox. Take aspirin 81 mg 1 tablet daily. Keep a journal of the symptoms are having and precluding events. Schedule follow-up regarding her evaluation at [facility]. Return to emergency department for chest pain, shortness of breath, or other urgent health care needs. All discharge instructions reviewed with patient and/or family. Voiced understanding. Copy Copies To 1: MIMI COX MD FACP FACC CCDS Copies To 2: YUKI ENCARNACION AMY ARNP Feb 01, 2019 11:15
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
[2019-02-01 11:17] LABS: BASOPHILS % (AUTO) 0 % (0-10); EOSINOPHILS # (AUTO) 0.1 10^3/uL (0.0-0.3); EOSINOPHILS % (AUTO) 2 % (0-10); HEMATOCRIT 40 % (35-52); HEMOGLOBIN 14.1 G/DL (11.5-16.0); LYMPHOCYTES # (AUTO) 2.5 X 10^3 (1.0-4.0); LYMPHOCYTES % (AUTO) 36 % (12-44); MEAN CORPUSCULAR HEMOGLOBIN 31 PG (25-34); MEAN CORPUSCULAR HGB CONC 35 G/DL (32-36); MEAN CORPUSCULAR VOLUME 87 FL (80-99); MEAN PLATELET VOLUME 10.5 FL (7.4-10.4); MONOCYTES # (AUTO) 0.6 X 10^3 (0.0-1.0); MONOCYTES % (AUTO) 8 % (0-12); NEUTROPHILS # (AUTO) 3.8 X 10^3 (1.8-7.8); NEUTROPHILS % (AUTO) 54 % (42-75); PLATELET COUNT 219 10^3/uL (130-400); RED CELL DISTRIBUTION WIDTH 12.2 % (10.0-14.5)
[2019-02-01 11:29] LABS: PROTHROMBIN TIME PATIENT 13.6 SEC (12.2-14.7)
[2019-02-01 11:35] LABS: ALANINE AMINOTRANSFERASE 22 U/L (0-55); ALBUMIN 4.4 GM/DL (3.2-4.5); ALKALINE PHOSPHATASE 56 U/L (40-136); BILIRUBIN,TOTAL 1.4 MG/DL (0.1-1.0); BUN/CREATININE RATIO 18; CALCIUM 9.6 MG/DL (8.5-10.1); CARBON DIOXIDE 16 MMOL/L (21-32); CHLORIDE 109 MMOL/L (98-107); CREATININE SERUM 0.92 MG/DL (0.60-1.30); GFR ESTIMATED > 60; GLUCOSE 126 MG/DL (70-105); MAGNESIUM 2.1 MG/DL (1.8-2.4); POTASSIUM 3.1 MMOL/L (3.6-5.0); SODIUM 137 MMOL/L (135-145); TOTAL PROTEIN 7.1 GM/DL (6.4-8.2)
[2019-02-01 12:14] LABS: TSH (THYROID ANALYZER) 0.3 UIU/ML (0.35-4.94)
[2019-02-01 12:50] LABS: FREE T4 (FREE THYROXINE) 0.99 NG/DL (0.70-1.48)
[2019-02-01 13:31] VITALS: BP 118/84
--- NOTE | 2019-02-01 14:05 | Diagnostic Imaging Report ---
CHEST 1 VIEW, AP/PA ONLY Indication: Chest pain Comparison: None available. Findings: No focal airspace disease in the visualized lungs. Please note that the posterior lower lobes are poorly evaluated by portable radiography. No pleural effusion or pneumothorax. Normal cardiomediastinal silhouette. Impression: No acute cardiopulmonary process by portable radiography. Dictated by: Dictated on workstation # [id number]
== END 2019-02-01 13:31 | disposition home or self-care (01) ==
LOC: EDUNIT# 10:52 → ER 10:53
DX: R07.2 Precordial pain (principal); E07.9 Disorder of thyroid, unspecified; J45.909 Unspecified asthma, uncomplicated; G40.909 Epilepsy, unspecified, not intractable, without status epilepticus; F12.10 Cannabis abuse, uncomplicated; F17.210 Nicotine dependence, cigarettes, uncomplicated; Z88.0 Allergy status to penicillin; Z91.041 Radiographic dye allergy status
CPT/HCPCS: 36415; 71045; 80053; 83735; 83874; 84439; 84443; 84484; 85025; 85610; 85730; 93005; 93041

== ENCOUNTER 2019-07-12 16:56 | Emergency (ER) | payer OTHER ==
[~2019-07-12] VITALS: Ht 170 cm; Wt 82.3 kg
[2019-07-12] MEDS ORDERED: ASPIRIN 81 MG CHEW (CHILDREN'S ASA) PO ONE (17:15)
[2019-07-12] MEDS ORDERED: KETOROLAC 30 MG/ML VIAL IVP ONE (17:15)
[2019-07-12 17:16] LABS: BASOPHILS % (AUTO) 0 % (0-10); EOSINOPHILS % (AUTO) 0 % (0-10); HEMATOCRIT 45 % (35-52); HEMOGLOBIN 16.2 G/DL (11.5-16.0); LYMPHOCYTES # (AUTO) 1.3 X 10^3 (1.0-4.0); LYMPHOCYTES % (AUTO) 27 % (12-44); MEAN CORPUSCULAR HEMOGLOBIN 31 PG (25-34); MEAN CORPUSCULAR HGB CONC 36 G/DL (32-36); MEAN CORPUSCULAR VOLUME 87 FL (80-99); MEAN PLATELET VOLUME 10.3 FL (7.4-10.4); MONOCYTES # (AUTO) 0.9 X 10^3 (0.0-1.0); MONOCYTES % (AUTO) 19 % (0-12); NEUTROPHILS # (AUTO) 2.6 X 10^3 (1.8-7.8); NEUTROPHILS % (AUTO) 53 % (42-75); PLATELET COUNT 202 10^3/uL (130-400); RED CELL DISTRIBUTION WIDTH 12.2 % (10.0-14.5); WHITE BLOOD COUNT 4.9 10^3/uL (4.3-11.0)
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
[2019-07-12 17:36] LABS: ALANINE AMINOTRANSFERASE 39 U/L (0-55); ALBUMIN 4.5 GM/DL (3.2-4.5); ALKALINE PHOSPHATASE 72 U/L (40-136); BILIRUBIN,TOTAL 0.5 MG/DL (0.1-1.0); BUN/CREATININE RATIO 12; CALCIUM 9.7 MG/DL (8.5-10.1); CARBON DIOXIDE 17 MMOL/L (21-32); CHLORIDE 105 MMOL/L (98-107); CREATININE SERUM 0.82 MG/DL (0.60-1.30); GFR ESTIMATED > 60; GLUCOSE 99 MG/DL (70-105); LIPASE 31 U/L (8-78); POTASSIUM 3.4 MMOL/L (3.6-5.0); SODIUM 136 MMOL/L (135-145); TOTAL PROTEIN 7.7 GM/DL (6.4-8.2)
[2019-07-12 17:46] LABS: LYMPHOCYTES % (MANUAL) 30 %; NEUTROPHILS % (MANUAL) 50 %
--- NOTE | 2019-07-12 17:46 | Diagnostic Imaging Report ---
Indication: Chest pain and shortness of breath PA and lateral chest Heart size and pulmonary vascularity are normal. Lungs are clear. There are no effusions or pneumothoraces. IMPRESSION: Negative chest Dictated by: Dictated on workstation # [id number]
[2019-07-12 17:47] LABS: EOSINOPHILS % (MANUAL) 2 %; MONOCYTES % (MANUAL) 18 %; RBC MORPH N
[2019-07-12] MEDS ORDERED: IOHEXOL 350 MG/ML 100 ML (OMNIPAQUE 350) VIAL IV ONE (18:15)
[2019-07-12] MEDS ORDERED: NS 100 ML (IVPB) BAG IV ONE (18:15)
[2019-07-12] MEDS ORDERED: HOLD METFORMIN - RECEIVED CONTRAST 20 ML VIAL IV SCH (18:15)
--- NOTE | 2019-07-12 18:29 | Diagnostic Imaging Report ---
PROCEDURE: CT angiography of the chest with contrast. TECHNIQUE: Multiple contiguous axial images were obtained through the chest after uneventful bolus administration of intravenous contrast. 3D reconstructed CTA MIP acquisitions were also performed. Auto Exposure Controls were utilized during the CT exam to meet ALARA standards for radiation dose reduction. INDICATION: Jaw pain, left shoulder pain and chest pain with shortness of air. FINDINGS: There are no intraluminal pulmonary arterial filling defects. There are no findings of pulmonary arterial embolus. The thoracic aorta patent and nonaneurysmal. There is no pleural or pericardial effusion. There is no pneumothorax. No findings of focal pneumonia or aspiration. No mass or adenopathy. There is no acute soft tissue or osseous chest wall lesion. The visualized upper abdomen is nonacute. IMPRESSION: Normal CTA chest. Dictated by: Dictated on workstation # [id number]
[2019-07-12 18:52] VITALS: BP 132/81
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
== END 2019-07-12 18:54 | disposition home or self-care (01) ==
LOC: EDUNIT# 16:56 → ER 16:57
DX: M79.10 Myalgia, unspecified site (principal); R07.9 Chest pain, unspecified; J45.909 Unspecified asthma, uncomplicated; G40.909 Epilepsy, unspecified, not intractable, without status epilepticus; Z88.0 Allergy status to penicillin; Z88.1 Allergy status to other antibiotic agents; Z77.22 Contact with and (suspected) exposure to environmental tobacco smoke (acute) (chronic)
CPT/HCPCS: 36415; 71046; 71275; 80053; 83690; 83880; 84443; 84484; 84703; 85007; 85027; 85379; 87804; 93005; 96374

== ENCOUNTER 2019-10-14 16:36 | Emergency (ER) | payer OTHER ==
[~2019-10-14] VITALS: Ht 170 cm; Wt 84.0 kg
--- NOTE | 2019-10-14 17:30 | ED Cardiac General ---
History of Present Illness General Chief Complaint: Cardiac/General Problems Stated Complaint: SEIZURE,CHEST PAIN,ARMS NUMB AND TINGLING Nursing Triage Note: had a seizure approx 45 minutes [employer], now has CP and deshawn shoulder pain, L arm pain, and numbness to deshawn hands Source: patient Exam Limitations: no limitations History of Present Illness Date Seen by Provider: Oct 14, 2019 Time Seen by Provider: 17:26 Initial Comments To ER with reports of seizure-like activity. She's had this a couple of times, this lasts anywhere from a few seconds to 30 seconds. Typically this happens when she is on her menstrual period, today is the first time it happened when she is not on her menstrual period. This affects both hands shaking, she loses consciousness. She did not bite her tongue or lose control of bowel or bladder. At this point she has some tingling in both hands which is typical after these attacks will usually resolve over the course of the next couple hours she states. She has seen primary care, Dr. Cox from cardiology and neurology from with video electroencephalogram. She states that epilepsy has been ruled out, the only thing she had done his a tilt table test. Her older sister and father have similar symptoms, they have vasovagal syncope. Timing/Duration: 1/2 hour Severity: mild, moderate Location: central Activities at Onset: none NTG SL [employer] RE[employer]: No ASA po [employer] REP: No Associated Systoms: Weakness Allergies and Home Medications Allergies Coded Allergies: Penicillins (Verified Allergy, Unknown, 08/02/18) erythromycin base (Verified Allergy, Unknown, 08/02/18) Home Medications Cyclobenzaprine HCl 10 Mg Tablet, 10 MG PO Q8H Prescribed by: ANTONIO GÓMEZ on 09/10/18 1435 Hydrocodone Bit/Acetaminophen 1 Tab Tab, 1 EACH PO Q4-6HR PRN for PAIN-MODERATE Prescribed by: MARCI LINARES on 05/09/18 1128 Patient Home Medication List Home Medication List Reviewed: Yes Review of Systems Review of Systems Constitutional: see HPI EENTM: No Symptoms Reported Respiratory: No Symptoms Reported Cardiovascular: No Symptoms Reported Gastrointestinal: See HPI Genitourinary: No Symptoms Reported Musculoskeletal: no symptoms reported Skin: no symptoms reported Psychiatric/Neurological: No Symptoms Reported Endocrine: No Symptoms Reported Hematologic/Lymphatic: No Symptoms Reported Past Tokhhsi-Ipqejz-Brmrfa Hx Patient Social History Alcohol Use: Occasionally Uses Recreational Drug Use: Yes Drug of Choice: MARIJUANA Type Used: Cigarettes 2nd Hand Smoke Exposure: Yes Recent Foreign Travel: No Contact w/Someone Who Travel: No Recent Infectious Disease Expo: No Recent Hopitalizations: No Immunizations Up To Date Tetanus Booster (TDap): Unknown PED Vaccines UTD: Yes Date of Influenza Vaccine: Jul 16, 2018 Seasonal Allergies Seasonal Allergies: No Past Medical History Surgeries: Yes (EGD X2) Gallbladder Respiratory: Yes Asthma Cardiac: No Neurological: Yes Seizure Disorder Sexually Transmitted Disease: No Genitourinary: No Gastrointestinal: No Musculoskeletal: No Endocrine: No HEENT: No Cancer: No Psychosocial: No Integumentary: No Family Medical History No Pertinent Family Hx Physical Exam Vital Signs Vital Signs - First Documented 10/14/19 17:06 Pulse 57 Resp 16 B/P (MAP) 150/90 (110) Capillary Refill : Less Than 3 Seconds Height, Weight, BMI Height: 5'7.00" Weight: 165lbs. oz. 74.780764jt; 29.00 BMI Method:Stated General Appearance: No Apparent Distress, WD/WN HEENT: PERRL/EOMI, TMs Normal Neck: Full Range of Motion, Normal Inspection Respiratory: No Accessory Muscle Use, No Respiratory Distress Cardiovascular: Regular Rate, Rhythm, Normal Peripheral Pulses Gastrointestinal: Non Tender, Soft Extremity: Normal Capillary Refill, Normal Inspection Neurologic/Psychiatric: Alert, Oriented x3 Skin: Normal Color, Warm/Dry Progress/Results/Core Measures Results/Orders Lab Results Laboratory Tests Test 10/14/19 17:46 10/14/19 18:33 Range/Units White Blood Count 12.7 H 4.3-11.0 10^3/uL Red Blood Count 4.55 4.35-5.85 10^6/uL Hemoglobin 13.9 11.5-16.0 G/DL Hematocrit 40 35-52 % Mean Corpuscular Volume 88 80-99 FL Mean Corpuscular Hemoglobin 31 25-34 PG Mean Corpuscular Hemoglobin Concent 35 32-36 G/DL Red Cell Distribution Width 12.9 10.0-14.5 % Platelet Count 219 130-400 10^3/uL Mean Platelet Volume 10.0 7.4-10.4 FL Neutrophils (%) (Auto) 74 42-75 % Lymphocytes (%) (Auto) 18 12-44 % Monocytes (%) (Auto) 6 0-12 % Eosinophils (%) (Auto) 1 0-10 % Basophils (%) (Auto) 0 0-10 % Neutrophils # (Auto) 9.5 H 1.8-7.8 X 10^3 Lymphocytes # (Auto) 2.3 1.0-4.0 X 10^3 Monocytes # (Auto) 0.8 0.0-1.0 X 10^3 Eosinophils # (Auto) 0.2 0.0-0.3 10^3/uL Basophils # (Auto) 0.0 0.0-0.1 10^3/uL D-Dimer <= 0.27 0.00-0.49 UG/ML Sodium Level 137 135-145 MMOL/L Potassium Level 3.1 L 3.6-5.0 MMOL/L Chloride Level 108 H 98-107 MMOL/L Carbon Dioxide Level 22 21-32 MMOL/L Anion Gap 7 5-14 MMOL/L Blood Urea Nitrogen 15 7-18 MG/DL Creatinine 0.80 0.60-1.30 MG/DL Estimat Glomerular Filtration Rate > 60 BUN/Creatinine Ratio 19 Glucose Level 96 70-105 MG/DL Calcium Level 9.0 8.5-10.1 MG/DL Corrected Calcium 8.8 8.5-10.1 MG/DL Total Bilirubin 0.8 0.1-1.0 MG/DL Aspartate Amino Transf (AST/SGOT) 79 H 5-34 U/L Alanine Aminotransferase (ALT/SGPT) 55 0-55 U/L Alkaline Phosphatase 64 40-136 U/L Troponin I < 0.028 <0.028 NG/ML Total Protein 6.7 6.4-8.2 GM/DL Albumin 4.3 3.2-4.5 GM/DL Thyroid Stimulating Hormone (TSH) 0.63 0.35-4.94 UIU/ML Free Thyroxine 0.99 0.70-1.48 NG/DL Serum Test, Qualitative NEGATIVE NEGATIVE Urine Color YELLOW Urine Clarity CLEAR Urine pH 6.5 5-9 Urine Specific [place] <=1.005 1.016-1.022 Urine Protein NEGATIVE NEGATIVE Urine Glucose (UA) NEGATIVE NEGATIVE Urine Ketones NEGATIVE NEGATIVE Urine Nitrite NEGATIVE NEGATIVE Urine Bilirubin NEGATIVE NEGATIVE Urine Urobilinogen 0.2 < = 1.0 MG/DL Urine Leukocyte Esterase TRACE H NEGATIVE Urine RBC (Auto) TRACE-I NEGATIVE Urine RBC RARE /HPF Urine WBC RARE /HPF Urine Squamous Epithelial Cells RARE /HPF Urine Crystals NONE /LPF Urine Bacteria TRACE /HPF Urine Casts NONE /LPF Urine Mucus NEGATIVE /LPF Urine Culture Indicated NO My Orders Orders - RADHA GATES APRN Troponin I (10/14/19 17:25) Fibrin Degradation Products (10/14/19 17:25) Hcg,Qualitative Serum (10/14/19 17:25) Cbc With Automated Diff (10/14/19 17:25) Comprehensive Metabolic Panel (10/14/19 17:25) Thyroid Stimulating Hormone (10/14/19 17:25) Free T4 (Free Thyroxine) (10/14/19 17:25) Ekg Tracing (10/14/19 17:25) Ua Culture If Indicated (10/14/19 17:41) Chest 1 View, Ap/Pa Only (10/14/19 17:53) Potassium Chloride (Tablet) (Klor Con Ta (10/14/19 18:45) Vital Signs/I&O 10/14/19 17:06 Pulse 57 Resp 16 B/P (MAP) 150/90 (110) Blood Pressure Mean: 110 Departure Communication (Admissions) Differential includes vasovagal syncope versus psychogenic nonepileptic attacks. Impression Primary Impression: Seizure-like activity Disposition: 01 HOME, SELF-CARE Condition: Stable Departure-Patient Inst. Decision time for Depature: 19:04 [place] [facility] [place] Primary Care Physician EYAD ISLAS APRN (Family) Primary Care Physician Patient Instructions: Syncope (Fainting) (DC) Add. Discharge Instructions: 1. Call Dr. Hernandez for follow-up 2. All discharge instructions reviewed with patient and/or family. Voiced understanding. Copy Copies To 1: MIMI COX MD FACP FAC CCDS; EVERTON HERNANDEZ MD, PETER J APRN Oct 14, 2019 17:30
[2019-10-14 17:54] LABS: BASOPHILS % (AUTO) 0 % (0-10); EOSINOPHILS # (AUTO) 0.2 10^3/uL (0.0-0.3); EOSINOPHILS % (AUTO) 1 % (0-10); HEMATOCRIT 40 % (35-52); HEMOGLOBIN 13.9 G/DL (11.5-16.0); LYMPHOCYTES # (AUTO) 2.3 X 10^3 (1.0-4.0); LYMPHOCYTES % (AUTO) 18 % (12-44); MEAN CORPUSCULAR HEMOGLOBIN 31 PG (25-34); MEAN CORPUSCULAR HGB CONC 35 G/DL (32-36); MEAN CORPUSCULAR VOLUME 88 FL (80-99); MONOCYTES # (AUTO) 0.8 X 10^3 (0.0-1.0); MONOCYTES % (AUTO) 6 % (0-12); NEUTROPHILS # (AUTO) 9.5 X 10^3 (1.8-7.8); NEUTROPHILS % (AUTO) 74 % (42-75); PLATELET COUNT 219 10^3/uL (130-400); RED CELL DISTRIBUTION WIDTH 12.9 % (10.0-14.5); WHITE BLOOD COUNT 12.7 10^3/uL (4.3-11.0)
[2019-10-14 18:16] LABS: ALANINE AMINOTRANSFERASE 55 U/L (0-55); ALBUMIN 4.3 GM/DL (3.2-4.5); ALKALINE PHOSPHATASE 64 U/L (40-136); BILIRUBIN,TOTAL 0.8 MG/DL (0.1-1.0); BUN/CREATININE RATIO 19; CARBON DIOXIDE 22 MMOL/L (21-32); CHLORIDE 108 MMOL/L (98-107); GFR ESTIMATED > 60; GLUCOSE 96 MG/DL (70-105); POTASSIUM 3.1 MMOL/L (3.6-5.0); SODIUM 137 MMOL/L (135-145); TOTAL PROTEIN 6.7 GM/DL (6.4-8.2)
--- NOTE | 2019-10-14 18:25 | Diagnostic Imaging Report ---
Indication: Seizure and chest pain Single view of the chest is obtained with comparison made study of 07/12/2019. FINDINGS: Heart size and pulmonary vascularity are within normal limits, and the lungs are clear, bilaterally. IMPRESSION: Unremarkable chest. Dictated by: Dictated on workstation # [id number]
[2019-10-14 18:38] LABS: BILIRUBIN,URINE NEGATIVE (NEGATIVE); CLARITY,URINE CLEAR; COLOR,URINE YELLOW; GLUCOSE, URINE (UA) NEGATIVE (NEGATIVE); KETONES,URINE NEGATIVE (NEGATIVE); LEUKOCYTE ESTERASE ,URINE TRACE (NEGATIVE); NITRITE,URINE NEGATIVE (NEGATIVE); PH,URINE 6.5 (5-9); PROTEIN,URINE NEGATIVE (NEGATIVE)
[2019-10-14 18:38] LABS: FREE T4 (FREE THYROXINE) 0.99 NG/DL (0.70-1.48)
[2019-10-14] MEDS ORDERED: KCL 10 MEQ TAB (MICRO K) PO ONE (18:45)
[2019-10-14 18:55] LABS: BACTERIA,URINE TRACE /HPF; RBC,URINE RARE /HPF; SQUAMOUS EPITHELIAL CELL,UR RARE /HPF; WBC,URINE RARE /HPF
[2019-10-14 19:20] VITALS: BP 126/80
== END 2019-10-14 19:20 | disposition home or self-care (01) ==
LOC: EDUNIT# 16:36 → ER 16:37
DX: R25.8 Other abnormal involuntary movements (principal); Z88.0 Allergy status to penicillin; Z88.1 Allergy status to other antibiotic agents; Z77.22 Contact with and (suspected) exposure to environmental tobacco smoke (acute) (chronic)
CPT/HCPCS: 36415; 71045; 80053; 81000; 84439; 84443; 84484; 84703; 85025; 85379; 93005

== ENCOUNTER 2020-02-02 19:43 | Emergency (ER) | payer OTHER ==
[~2020-02-02] VITALS: Ht 167 cm; Wt 84.0 kg
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
[2020-02-02] MEDS ORDERED: RX-TRIMETH/SULFA. 160-800 MG (BACTRIM DS) TAB PPK#2 PO STA (20:10)
[2020-02-02] MEDS ORDERED: CLINDAMYCIN 600 MG/4ML (CLEOCIN) VIAL IM ONE (20:15)
--- NOTE | 2020-02-02 20:17 | ED General ---
General Chief Complaint: General Problems/Pain Stated Complaint: R FOOT INFECTION/SORE THROAT Source of Information: Patient History of Present Illness Date Seen by Provider: Feb 02, 2020 Time Seen by Provider: 20:00 Initial Comments PT ARRIVES VIA POV FROM HOME C/O SORE THROAT FOR A COUPLE OF DAYS--THINKS SHE HAS "STREP" --STATES SHE GETS IT ABOUT ONCE A YEAR NO FEVER NO URI SYMPTOMS NO COUGH ALSO STATES TODAY SHE HAS NOTICED A SORE ON THE SIDE OF HER RIGHT 5TH TOE, AND HAS A STREAK GOING UP HER RIGHT FOOT NO KNOWN INJURY STATES IT WAS NOT PAINFUL YESTERDAY DOES STATE SHE HAS BAD ATHLETE'S FOOT AND HAS SCABBED AREAS ON HER FEET FROM THAT NO MOTOR/SENSORY DEFICITS NO HISTORY OF MRSA/SKIN INFECTIONS PT DENIES ANY KNOWN SICK CONTACTS OR KNOWN EXPOSURE TO COVID-19 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 IS NOT ILL PT IS UP TO DATE ON TETANUS VACCINATION PCP: [facility] [place] Allergies and Home Medications Allergies Coded Allergies: Penicillins (Verified Allergy, Unknown, 08/02/18) erythromycin base (Verified Allergy, Unknown, 08/02/18) Home Medications Cefdinir 300 Mg Capsule, 300 MG PO BID Prescribed by: VIVI HELTON on 02/02/202054 Cyclobenzaprine HCl 10 Mg Tablet, 10 MG PO Q8H Prescribed by: ANTONIO GÓMEZ on 09/10/18 1435 Hydrocodone Bit/Acetaminophen 1 Tab Tab, 1 EACH PO Q4-6HR PRN for PAIN-MODERATE Prescribed by: MARCI LINARES on 05/09/18 1128 Ketoconazole 200 Mg Tablet, 200 MG PO DAILY Prescribed by: VIVI HELTON on 02/02/202018 Sulfamethoxazole/Trimethoprim 1 Each Tablet, 1 EACH PO BID Prescribed by: VIVI HELTON on 02/02/202018 Terbinafine HCl 15 Gm Cream..g., 15 GM TP BID Prescribed by: VIVI HELTON on 02/02/202018 Patient Home Medication List Home Medication List Reviewed: Yes Review of Systems Review of Systems Constitutional: no symptoms reported; No chills, No diaphoresis, No dizziness, No fever EENTM: see HPI, throat pain; No ear pain, No nose congestion, No throat swelling Respiratory: no symptoms reported; No cough, No short of breath Cardiovascular: no symptoms reported Gastrointestinal: no symptoms reported Genitourinary: no symptoms reported Musculoskeletal: see HPI Skin: see HPI Psychiatric/Neurological: No Symptoms Reported Hematologic/Lymphatic: No Symptoms Reported Immunological/Allergic: no symptoms reported Past Pocbyrk-Gsiasl-Fdgctw Hx Past Med/Social Hx: Reviewed and Corrections made Patient Social History Alcohol Use: Denies Use Recreational Drug Use: Yes (THC) Drug of Choice: MARIJUANA Smoking Status: Current Everyday Smoker Type Used: Cigarettes 2nd Hand Smoke Exposure: Yes Recent Foreign Travel: No Contact w/Someone Who Travel: No Recent Hopitalizations: No Immunizations Up To Date Tetanus Booster (TDap): Unknown PED Vaccines UTD: Yes Date of Influenza Vaccine: Jul 16, 2018 Seasonal Allergies Seasonal Allergies: No Past Medical History Surgeries: Yes (EGD X2) Gallbladder Respiratory: Yes Asthma Cardiac: No Neurological: Yes Seizure Disorder : No Reproductive Disorders: No Sexually Transmitted Disease: No Genitourinary: No Gastrointestinal: Yes (S/P CHOLECYSTECTOMY; EGD X2 ) Gall Bladder Disease Musculoskeletal: No Endocrine: No HEENT: No Cancer: No Psychosocial: No Integumentary: No Family Medical History No Pertinent Family Hx Physical Exam Vital Signs Vital Signs - First Documented 02/02/20 19:52 Temp 36.9 Pulse 103 Resp 18 B/P (MAP) 125/83 (97) Pulse Ox 96 Capillary Refill : Height, Weight, BMI Height: 5'7.00" Weight: 165lbs. oz. 74.807506um; 29.00 BMI Method:Stated General Appearance: No Apparent Distress, WD/WN HEENT: PERRL/EOMI, TMs Normal, Other (TONSILS AND POSTERIOR PHARYNX INFLAMED. NO EXUDATES. NO SIGNIFICANT TONSILLAR SWELLING OR EVIDENCE OF ABSCESS. VOICE NORMAL .NO UVULAR SWELLING. ) Neck: Full Range of Motion, Normal Inspection, Non Tender, Supple; No Lymphadenopathy (L), No Lymphadenopathy (R) Respiratory: Normal Breath Sounds, No Accessory Muscle Use, No Respiratory Distress Cardiovascular: Regular Rate, Rhythm, No Murmur Gastrointestinal: No Organomegaly, Non Tender, Soft Extremity: Normal Capillary Refill, Normal Range of Motion, No Pedal Edema, Other (EVIDENCE OF TINEA PEDIS TO BOTH FEET--MOSTLY AROUND/BETWEEN TOES--SCALY, PEELING SKIN WITH AREAS OF SCABBING AND FISSURING. HAS LARGER SCABBED WOUND TO LATERAL ASPECT OF RIGHT 5TH TOE WITH SURROUNDING ERYTHEMA, SLIGHT SUB Q PURULENCE AND STREAK EXTENDING TO ANTERIOR ASPECT OF ANKLE. NO EVIDENCE OF DEEP ABSCESS. NO DRAINAGE. 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 ) Progress/Results/Core Measures Suspected Sepsis SIRS Temperature: Pulse: Respiratory Rate: Blood Pressure / Mean: Results/Orders Lab Results Laboratory Tests Test 02/02/20 20:00 Range/Units Group A Streptococcus Screen POSITIVE H NEGATIVE My Orders Orders - VIVI HELTON DO Rapid Strep A Screen (02/02/20 20:02) Foot, Right, 3 View (02/02/20 20:02) Clindamycin Injection (Cleocin Injection (02/02/20 20:15) Rx-Trimeth/Sulfameth Ds Tab (Rx-Bactrim/ (02/02/20 20:10) Clindamycin 600 Mg/50 Ml Ivpb (Cleocin P (02/02/20 21:24) Clindamycin Injection (Cleocin Injection (02/02/20 21:26) Clindamycin Injection (Cleocin Injection (02/02/20 21:30) Medications Given in ED Current Medications Medications Dose Ordered Sig/Dejan Route Start Time Stop Time Status Last Admin Dose Admin Clindamycin Phosphate 600 mg ONCE ONCE IM 02/02/20 20:15 02/02/20 20:16 DC 02/02/20 21:33 600 MG Vital Signs/I&O 02/02/20 19:52 Temp 36.9 Pulse 103 Resp 18 B/P (MAP) 125/83 (97) Pulse Ox 96 Capillary Refill : Diagnostic Imaging Comments XRAYS RIGHT FOOT--NO ACUTE PROCESS, PER RADIOLOGIST REPORT AT 2056 Reviewed: Reviewed by Me Departure Impression Primary Impression: CELLULITIS WITH LYMPHANGITIS RIGHT FOOT Additional Impressions: Tinea pedis Strep pharyngitis Disposition: 01 HOME, SELF-CARE Condition: Stable Departure-Patient Inst. Referrals: [facility] (PCP) Primary Care Physician EYAD ISLAS APRN (Family) Primary Care Physician Patient Instructions: Athlete's Foot (DC), Cellulitis (Skin Infection), Adult (DC), MRSA (DC), Strep Throat (DC) Add. Discharge Instructions: SOAK FOOT IN WARM EPSOM SALTS 2-3 TIMES A DAY, DRY FEET WELL TYLENOL AND MOTRIN NEEDED FOR PAIN FOLLOW UP WITH [facility] IN 2 DAYS FOR FURTHER CARE All discharge instructions reviewed with patient and/or family. Voiced understanding. Scripts Cefdinir (Cefdinir) 300 Mg Capsule 300 MG PO BID, #20 CAP Prov: VIVI HELTON DO 02/02/20 Terbinafine HCl (Terbinafine) 15 Gm Cream..g. 15 GM TP BID for 30 Days, #1 TUBE Prov: VIVI HELTON DO 02/02/20 Ketoconazole (Ketoconazole) 200 Mg Tablet 200 MG PO DAILY, #30 TAB Prov: VIVI HELTON DO 02/02/20 Sulfamethoxazole/Trimethoprim (Bactrim Ds Tablet) 1 Each Tablet 1 EACH PO BID, #20 TAB Prov: VIVI HELTON DO 02/02/20 VIVI HELTON DO Feb 02, 2020 20:17
[2020-02-02] MEDS ORDERED: KETO200T12 PO (20:19)
[2020-02-02] MEDS ORDERED: TERB15CR6 TP (20:19)
[2020-02-02] MEDS ORDERED: SULF1TAB35 PO (20:19)
[2020-02-02] MEDS ORDERED: CEFD300C3 PO (20:55)
--- NOTE | 2020-02-02 20:55 | Diagnostic Imaging Report ---
INDICATION: Red streaking across the dorsum of the right foot and lower extremity. No known injuries. EXAMINATION: Right lower extremity, 02/02/2020. FINDINGS: Three views of the right foot. There is no evidence for an acute fracture or dislocation. The joint spaces are well maintained. There is no significant soft tissue swelling. IMPRESSION: No acute process. Dictated by: Dictated on workstation # [id number]
[2020-02-02 21:20] VITALS: BP 121/80
[2020-02-02] MEDS ORDERED: CLINDAMYCIN 600 MG/50 ML IVPB 0 ML IV ONE (21:24)
[2020-02-02] MEDS ORDERED: CLINDAMYCIN 300 MG/2ML (CLEOCIN) VIAL ONE (21:26)
[2020-02-02] MEDS ORDERED: CLINDAMYCIN 300 MG/2ML (CLEOCIN) VIAL IM ONE (21:30)
== END 2020-02-02 21:44 | disposition home or self-care (01) ==
LOC: EDUNIT# 19:43 → ER 19:44
DX: L03.115 Cellulitis of right lower limb (principal); B35.3 Tinea pedis; J02.0 Streptococcal pharyngitis; F17.210 Nicotine dependence, cigarettes, uncomplicated; Z88.0 Allergy status to penicillin; Z88.1 Allergy status to other antibiotic agents
CPT/HCPCS: 73630; 87430

== ENCOUNTER → 2020-05-15 | Outpatient (CLI) | payer OTHER ==
[~2020-05-15] MED LIST changes: +CEFD300C3 PO; +KETO200T12 PO; +RT-ALBUTEROL SULF 2.5 MG/3 ML PRE-MIX VIAL INH ONE; +SULF1TAB35 PO; +TERB15CR6 TP
== END ==
LOC: RT 15:30
PROVIDERS: ATTEND Nurse Practitioner Family
DX: R06.02 Shortness of breath (principal); F17.200 Nicotine dependence, unspecified, uncomplicated
CPT/HCPCS: 94060; 94726; 94729

== ENCOUNTER 2021-10-08 07:07 | Emergency (ER) | payer SELFPAY ==
[~2021-10-08] VITALS: Ht 170 cm; Wt 113.0 kg
[~2021-10-08 07:07] MED LIST changes: +CYCL10TA25 PO; -CYCL10TA9 PO; -RT-ALBUTEROL SULF 2.5 MG/3 ML PRE-MIX VIAL INH ONE; -SULF1TAB35 PO; +SULF1TAB38 PO
--- NOTE | 2021-10-08 07:19 | ED Chest Pain ---
General Chief Complaint: Chest Pain Stated Complaint: CHEST PAIN / NAUSEA Source: patient Exam Limitations: no limitations History of Present Illness Date Seen by Provider: Oct 08, 2021 Time Seen by Provider: 07:14 Initial Comments Patient is a 35-year-old female who presents to the emergency department with a chief complaint of midsternal chest discomfort while getting ready for work this morning at approximately 6:50, 15 minutes prior to arrival. Patient states it made her arms tingly on both sides. The pain did not radiate until getting to the emergency department she complains of discomfort in the epigastric area radiating under both ribs. Patient states she is nauseous. She has been diagnosed with "fatty liver disease" about a year ago. She does not drink alcohol. She smokes marijuana daily. She also smokes cigarettes. No family history of early coronary artery disease. She states there are several family members diagnosed with "neurocardiogenic syncope". She is not short of breath. She does use inhalers for breathing. No recent fevers chills cough or congestion. Had Covid about a month ago. Last menstrual cycle was less than a month ago. Patient states that her discomfort is actually improved at this time. All other review of systems reviewed and negative except as stated Timing/Duration: 1/2 hour (20 minutes) Severity/Quality: moderate, pressure Location: substernal, epigastric Radiation: no radiation Activities at Onset: none Prior CP/Workup: cardiolye scan ASA po ENVIRONMENTAL EPIDEMIOLOGIST: No NTG SL ENVIRONMENTAL EPIDEMIOLOGIST: No Associated Symptoms: nausea/vomiting (nausea without comiting) Allergies and Home Medications Allergies Coded Allergies: Penicillins (Verified Allergy, Unknown, 08/02/18) erythromycin base (Verified Allergy, Unknown, 08/02/18) Patient Home Medication List Home Medication List Reviewed: Yes Cefdinir (Cefdinir) 300 Mg Capsule, 300 MG PO BID Prescribed by: VIVI HELTON on 02/02/202054 Cyclobenzaprine HCl (Cyclobenzaprine HCl) 10 Mg Tablet, 10 MG PO Q8H Prescribed by: ANTONIO GÓMEZ on 09/10/18 1435 Hydrocodone Bit/Acetaminophen (Lortab 5 Mg Tablet) 1 Tab Tab, 1 EACH PO Q4-6HR PRN for PAIN-MODERATE Prescribed by: MARCI LINARES on 05/09/18 1128 Ketoconazole (Ketoconazole) 200 Mg Tablet, 200 MG PO DAILY Prescribed by: VIVI HELTON on 02/02/202018 Pantoprazole Sodium (Protonix) 20 Mg Tablet.dr, 20 MG PO DAILY Prescribed by: JOSE NANCE on 10/08/211036 Sulfamethoxazole/Trimethoprim (Bactrim Ds Tablet) 1 Each Tablet, 1 EACH PO BID Prescribed by: VIVI HELTON on 02/02/202018 Terbinafine HCl (Terbinafine) 15 Gm Cream..g., 15 GM TP BID Prescribed by: VIVI HELTON on 02/02/202018 Review of Systems Review of Systems Constitutional: see HPI EENTM: No Symptoms Reported Respiratory: No Symptoms Reported Cardiovascular: Chest Pain Gastrointestinal: Abdominal Pain (epigastric) Genitourinary: No Symptoms Reported Musculoskeletal: no symptoms reported Skin: no symptoms reported Psychiatric/Neurological: No Symptoms Reported All Other Systems Reviewed Negative Unless Noted: Yes Past Ucrjvln-Uxfyje-Ebimiu Hx Immunizations Up To Date Tetanus Booster (TDap): Less than 5yrs PED Vaccines UTD: Yes Seasonal Allergies Seasonal Allergies: No Past Medical History Surgeries: Yes (EGD X2) Gallbladder Respiratory: Yes Asthma Cardiac: No Neurological: Yes Seizure Disorder Reproductive Disorders: No Sexually Transmitted Disease: No Genitourinary: No Gastrointestinal: Yes (S/P CHOLECYSTECTOMY; EGD X2 ) Gall Bladder Disease Musculoskeletal: No Endocrine: No HEENT: No Cancer: No Psychosocial: No Integumentary: No Family Medical History No Pertinent Family Hx Physical Exam Vital Signs Vital Signs - First Documented 10/08/21 07:10 Temp 36.2 Pulse 82 Resp 18 B/P (MAP) 126/94 (105) Pulse Ox 99 Capillary Refill : Height, Weight, BMI Height: 5'7.00" Weight: 165lbs. oz. 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 Skin: Normal Color, Warm/Dry Progress/Results/Core Measures Results/Orders Lab Results Laboratory Tests Test 10/08/21 07:20 10/08/21 10:00 Range/Units White Blood Count 7.3 4.3-11.0 10^3/uL Red Blood Count 4.78 3.80-5.11 10^6/uL Hemoglobin 14.9 11.5-16.0 g/dL Hematocrit 43 35-52 % Mean Corpuscular Volume 91 80-99 fL Mean Corpuscular Hemoglobin 31 25-34 pg Mean Corpuscular Hemoglobin Concent 34 32-36 g/dL Red Cell Distribution Width 12.0 10.0-14.5 % Platelet Count 230 130-400 10^3/uL Mean Platelet Volume 9.9 9.0-12.2 fL Immature Granulocyte % (Auto) 0 % Neutrophils (%) (Auto) 56 42-75 % Lymphocytes (%) (Auto) 35 12-44 % Monocytes (%) (Auto) 6 0-12 % Eosinophils (%) (Auto) 2 0-10 % Basophils (%) (Auto) 0 0-10 % Neutrophils # (Auto) 4.1 1.8-7.8 10^3/uL Lymphocytes # (Auto) 2.5 1.0-4.0 10^3/uL Monocytes # (Auto) 0.5 0.0-1.0 10^3/uL Eosinophils # (Auto) 0.2 0.0-0.3 10^3/uL Basophils # (Auto) 0.0 0.0-0.1 10^3/uL Immature Granulocyte # (Auto) 0.0 0.0-0.1 10^3/uL Sodium Level 135 135-145 MMOL/L Potassium Level 3.7 3.6-5.0 MMOL/L Chloride Level 107 98-107 MMOL/L Carbon Dioxide Level 19 L 21-32 MMOL/L Anion Gap 9 5-14 MMOL/L Blood Urea Nitrogen 11 7-18 MG/DL Creatinine 0.79 0.60-1.30 MG/DL Estimat Glomerular Filtration Rate 99 BUN/Creatinine Ratio 14 Glucose Level 115 H 70-105 MG/DL Calcium Level 9.4 8.5-10.1 MG/DL Corrected Calcium 9.2 8.5-10.1 MG/DL Total Bilirubin 0.9 0.1-1.0 MG/DL Aspartate Amino Transf (AST/SGOT) 18 5-34 U/L Alanine Aminotransferase (ALT/SGPT) 25 0-55 U/L Alkaline Phosphatase 66 40-136 U/L Troponin I < 0.028 < 0.028 <0.028 NG/ML Total Protein 7.2 6.4-8.2 GM/DL Albumin 4.2 3.2-4.5 GM/DL Lipase 33 8-78 U/L My Orders Orders - JOSE NANCE MD Ed Iv/Invasive Line Start (10/08/21 07:29) Cbc With Automated Diff (10/08/21 07:29) Comprehensive Metabolic Panel (10/08/21 07:29) Lipase (10/08/21 07:29) Troponin I Tony (10/08/21 07:29) Ekg Tracing (10/08/21 07:29) Chest 1 View, Ap/Pa Only (10/08/21 07:29) Urine Bedside (10/08/21 07:29) Aspirin Chewable Tablet (Baby Aspirin Ch (10/08/21 07:30) Sucralfate Tablet (Carafate Tablet) (10/08/21 07:30) Antacid Suspension (Mylanta Suspension (10/08/21 07:30) Lidocaine 2% Viscous 15 Ml (Xylocaine Vi (10/08/21 07:30) Troponin I Wagoner (10/08/21 09:59) Medications Given in ED Vital Signs/I&O 10/08/21 10/08/21 07:10 10:44 Temp 36.2 Pulse 82 Resp 18 80 B/P (MAP) 126/94 (105) 171/85 Pulse Ox 99 96 Progress Progress Note : Time: 10:35 Progress Note Serial troponins both negative. Patient's vital signs have been stable. She achieved some relief with the GI cocktail. I have advised her to restart her Protonix daily. Follow-up with a primary care physician. Counseled her on smoking cessation. She verbalized understanding. All questions are sought and answered. Initial ECG Impression Date: Oct 08, 2021 Initial ECG Impression Time: 07:24 Initial ECG Rate: 73 Initial ECG Rhythm: Normal Sinus Initial ECG Intervals: Normal Initial ECG Impression: Normal Initial ECG Comparisson: Unchanged Diagnostic Imaging Diagonstic Imaging: Xray Plain Films/CT/US/NM/MRI: chest Comments [facility], [place] NAME: STACI BERRIOS [facility] REC#: [id number] PT STATUS: REG ER : 1985 PHYSICIAN: JOSE NANCE MD ADMIT DATE: 10/08/21/ER Signed Date of Exam:10/08/21 CHEST 1 VIEW, AP/PA ONLY INDICATION: Epigastric pain. COMPARISON: 10/14/2019. FINDINGS: The heart size, mediastinal configuration, and pulmonary vascularity are within normal limits. There is no pleural effusion, pneumothorax, or pneumonia. The osseous structures are unremarkable. IMPRESSION: No acute cardiopulmonary abnormality. Dictated by: Dictated on workstation # [id number] Dict: 10/08/2104 Trans: 10/08/21 0815 [facility] [id number] Interpreted by: CHUCKY MCCORMICK MD Electronically signed by: CHUCKY MCCORMICK MD 10/08/21 0815 Departure Impression Primary Impression: GERD (gastroesophageal reflux disease) Qualified Codes: K21.9 - Gastro-esophageal reflux disease without esophagitis Additional Impression: Chest pain Qualified Codes: R07.9 - Chest pain, unspecified Disposition: 01 HOME, SELF-CARE Condition: Stable Departure-Patient Inst. Decision time for Depature: 10:36 Referrals: [facility] (PCP) Primary Care Physician EYAD ISLAS APRN (Family) Primary Care Physician Patient Instructions: Chest Pain That Is Not Caused by the Heart (DC), Acid Reflux and GERD in Adults (DC) Add. Discharge Instructions: Restart your Protonix 20 mg once daily. Follow-up with a primary care physician. You should strongly consider quitting smoking. Return to the emergency department for any new, concerning or emergent complaints. Scripts Pantoprazole Sodium (Protonix) 20 Mg Tablet. 20 MG PO DAILY for 30 Days, #30 TAB Prov: JOSE NANCE MD 10/08/21 JOSE NANCE MD Oct 08, 2021 07:19
[2021-10-08] MEDS ORDERED: ANTACID SUSP 30 ML UDC (MYLANTA) PO ONE (07:30)
[2021-10-08] MEDS ORDERED: ASPIRIN 81 MG CHEW (CHILDREN'S ASA) PO ONE (07:30)
[2021-10-08] MEDS ORDERED: LIDOCAINE 2% VISCOUS 15 ML UDC PO ONE (07:30)
[2021-10-08] MEDS ORDERED: SUCRALFATE 1 GM (CARAFATE) TAB PO ONE (07:30)
[2021-10-08 07:35] LABS: BASOPHILS % (AUTO) 0 % (0-10); EOSINOPHILS # (AUTO) 0.2 10^3/uL (0.0-0.3); EOSINOPHILS % (AUTO) 2 % (0-10); HEMATOCRIT 43 % (35-52); HEMOGLOBIN 14.9 g/dL (11.5-16.0); LYMPHOCYTES # (AUTO) 2.5 10^3/uL (1.0-4.0); LYMPHOCYTES % (AUTO) 35 % (12-44); MEAN CORPUSCULAR HEMOGLOBIN 31 pg (25-34); MEAN CORPUSCULAR HGB CONC 34 g/dL (32-36); MEAN CORPUSCULAR VOLUME 91 fL (80-99); MEAN PLATELET VOLUME 9.9 fL (9.0-12.2); MONOCYTES # (AUTO) 0.5 10^3/uL (0.0-1.0); MONOCYTES % (AUTO) 6 % (0-12); NEUTROPHILS # (AUTO) 4.1 10^3/uL (1.8-7.8); NEUTROPHILS % (AUTO) 56 % (42-75); PLATELET COUNT 230 10^3/uL (130-400); WHITE BLOOD COUNT 7.3 10^3/uL (4.3-11.0)
[2021-10-08 07:46] LABS: ALBUMIN 4.2 GM/DL (3.2-4.5); CHLORIDE 107 MMOL/L (98-107); POTASSIUM 3.7 MMOL/L (3.6-5.0); SODIUM 135 MMOL/L (135-145)
[2021-10-08 07:48] LABS: CALCIUM 9.4 MG/DL (8.5-10.1)
[2021-10-08 07:49] LABS: GLUCOSE 115 MG/DL (70-105); TOTAL PROTEIN 7.2 GM/DL (6.4-8.2)
[2021-10-08 07:50] LABS: CARBON DIOXIDE 19 MMOL/L (21-32)
[2021-10-08 07:51] LABS: BILIRUBIN,TOTAL 0.9 MG/DL (0.1-1.0)
[2021-10-08 07:52] LABS: ALKALINE PHOSPHATASE 66 U/L (40-136)
[2021-10-08 07:53] LABS: CREATININE SERUM 0.79 MG/DL (0.60-1.30); GFR ESTIMATED 99
[2021-10-08 07:54] LABS: BUN/CREATININE RATIO 14
[2021-10-08 07:55] LABS: ALANINE AMINOTRANSFERASE 25 U/L (0-55)
[2021-10-08 07:56] LABS: LIPASE 33 U/L (8-78)
--- NOTE | 2021-10-08 08:08 | Diagnostic Imaging Report ---
INDICATION: Epigastric pain. COMPARISON: 10/14/2019. FINDINGS: The heart size, mediastinal configuration, and pulmonary vascularity are within normal limits. There is no pleural effusion, pneumothorax, or pneumonia. The osseous structures are unremarkable. IMPRESSION: No acute cardiopulmonary abnormality. Dictated by: Dictated on workstation # [id number]
[2021-10-08] MEDS ORDERED: PANT20TA2 PO (10:37)
[2021-10-08 10:44] VITALS: BP 171/85
== END 2021-10-08 10:45 | disposition home or self-care (01) ==
LOC: EDUNIT# 07:07 → ER 07:09
DX: K21.9 Gastro-esophageal reflux disease without esophagitis (principal); R07.9 Chest pain, unspecified; F17.210 Nicotine dependence, cigarettes, uncomplicated
CPT/HCPCS: 36415; 71045; 80053; 83690; 84484; 85025; 93005